=== PATIENT | male | born 1935 | race Hispanic/Latino ===

== ENCOUNTER 2019-08-14 17:06 | Inpatient (IN) | payer OTHER ==
[2019-08-14 18:08] LABS: Basophils % 0.5 % (0-1.3); Hematocrit 37.8 % (39.6-49.0); Lymphocytes % 7.9 % (15.3-44.8); MPV 10.3 fL (7.6-11.3); RBC Red Blood Cell Count 3.71 M/uL (4.33-5.43)
[2019-08-14 18:12] LABS: Protime INR 1.28
[2019-08-14 18:30] LABS: ALT/SGPT 12 U/L (12-78); AST/SGOT 6 U/L (15-37); Albumin 3.8 g/dL (3.4-5.0); Alkaline Phosphatase 62 U/L (45-117); BUN Blood Urea Nitrogen 18 mg/dL (7-18); Bicarbonate 28 mmol/L (21-32); Bilirubin Direct 0.9 mg/dL (0-0.2); Bilirubin Total 2.8 mg/dL (0.2-1.0); Glucose Level 101 mg/dL (74-106); NT PRO-BNP 2006 pg/mL (<450); Potassium 4.5 mmol/L (3.5-5.1); Protein, Total 7.5 g/dL (6.4-8.2); Sodium Level 135 mmol/L (136-145); Troponin (Emerg Dept Use Only) < 0.02 ng/mL (0.0-0.045)
--- NOTE | 2019-08-14 19:04 | RAD REPORT ---
EXAM DESCRIPTION: Jo Single View08/14/2019 5:34 pm CLINICAL HISTORY: Chest pain COMPARISON: May 2019 FINDINGS: Mild left lung opacities are superimposed over chronic changes. The right lung appears clear of acute infiltrate The heart is mildly enlarged IMPRESSION: Mild left pneumonia. This should be followed until it is clear to exclude a post obstruc tive process/underlying mass
[2019-08-14 19:32] LABS: Blood Morphology Comment NOTED (NOT SEEN); Platelet Estimate ADEQ; Polychromasia 1+; Urine White Blood Cell Casts OK
[2019-08-14] MEDS ORDERED: NA CHLORIDE 0.9% 250 ML ONE (20:12)
[2019-08-14] MEDS ORDERED: AZITHROMYCIN 500 MG INJ IVPB ONE (20:12)
[2019-08-14] MEDS ORDERED: CEFTRIAXONE/SWI 1gm 1 GM/10 ML SYR ONE (20:13)
--- NOTE | 2019-08-14 20:18 | ER ---
Nurse's Notes [facility] Name: Elijah Thibodeaux Age: 84 yrs Sex: Male : 1935 Arrival Date: 08/14/2019 Time: 17:08 Bed 6 Private MD: Norman Moon Diagnosis: Pneumonia due to other specified bacteria;Hypoxemia Presentation: 08/14 17:14 Presenting complaint: Patient states: i have this cough and its shruti yellow grabiel and it tw2 has been 2 or 3 days, i feel weak and i am coughing and i feel like i cant breathe. Transition of care: patient was not received from another setting of care. Onset of symptoms was August 14, 2019. Risk Assessment: Do you want to hurt yourself or someone else? Patient reports no desire to harm self or others. Initial Sepsis Screen: Does the patient meet any 2 criteria? No. Patient's initial sepsis screen is negative. Does the patient have a suspected source of infection? No. Patient's initial sepsis screen is negative. Care prior to arrival: None. 17:14 Method Of Arrival: Wheelchair tw2 17:14 Acuity: FABIÁN 3 tw2 Triage Assessment: 17:15 General: Appears in no apparent distress. Behavior is calm, cooperative, appropriate tw2 for age. Pain: Denies pain. Respiratory: Reports shortness of breath at rest on exertion cough that is Onset: The symptoms/episode began/occurred 2-3 days, the patient has mild shortness of breath. Historical: - Allergies: 17:18 No Known Allergies; tw2 - Home Meds: 17:18 donepezil 5 mg oral TbDL 1 tab once daily [Active]; carvedilol 6.25 mg oral tab 1 tab 2 tw2 times per day [Active]; Iron CR Oral [Active]; omeprazole 40 mg Oral cpDR 1 cap once daily [Active]; Men's One Daily 400-300 mcg oral tab [Active]; aspirin 81 mg Oral TbEC 1 tab once daily [Active]; pseudophedrine hydrocholride otc [Active]; - PMHx: 17:18 Hypertension; Atrial Fib; COPD; Lung Fibrosis; tw2 - PSHx: 17:18 cardiac stents; tw2 - Immunization history:: Adult Immunizations up to date. - Social history:: Smoking status: Patient/guardian denies using tobacco. - Ebola Screening: : No symptoms or risks identified at this time. Screenin:29 Abuse screen: Denies threats or abuse. Denies injuries from another. Nutritional hb screening: No deficits noted. Tuberculosis screening: No symptoms or risk factors identified. Fall Risk None identified. Assessment: 17:30 General: Appears in no apparent distress. Behavior is calm, cooperative. Pain: Denies hb pain. Neuro: Level of Consciousness is awake, alert, obeys commands, Oriented to person, place, time, situation. Cardiovascular: Heart tones S1 S2 present Capillary refill < 3 seconds Patient's skin is warm and dry. Rhythm is regular. Respiratory: Airway is patent Trachea midline Respiratory effort is mildly labored Respiratory pattern is regular, Breath sounds are coarse bilaterally. GI: No signs and/or symptoms were reported involving the gastrointestinal system. : No signs and/or symptoms were reported regarding the genitourinary system. EENT: No signs and/or symptoms were reported regarding the EENT system. Derm: Skin is pink, warm \T\ dry. Musculoskeletal: No signs and/or symptoms reported regarding the musculoskeletal system. 18:30 Reassessment: Patient appears in no apparent distress at this time. Patient and/or hb family updated on plan of care and expected duration. Pain level reassessed. Patient is alert, oriented x 3, equal unlabored respirations, skin warm/dry/pink. 19:55 General: Appears in no apparent distress. Behavior is calm, cooperative, appropriate ea for age. Pain: Denies pain. Neuro: Level of Consciousness is awake, alert, obeys commands, Oriented to person, place, time. Cardiovascular: Patient's skin is warm and dry. Respiratory: Airway is patent Respiratory effort is even, unlabored, Respiratory pattern is regular, Breath sounds are diminished bilaterally. Derm: Skin is dry, Skin is pale, Skin temperature is warm. Musculoskeletal: No signs and/or symptoms reported regarding the musculoskeletal system. 20:47 Reassessment: Patient and/or family updated on plan of care and expected duration. Pain ea level reassessed. Patient is alert, oriented x 3, equal unlabored respirations, skin warm/dry/pink. 22:21 Reassessment: Report given to Kristin BROUSSARD on fourth floor. ea Vital Signs: 17:18 BP 113 / 46; Pulse 85; Resp 18; Temp 98.0(TE); Pulse Ox 96% on R/A; Weight 78.02 kg tw2 (R); Height 5 ft. 9 in. (175.26 cm); Pain 0/10; 18:45 BP 123 / 75; Pulse 78; Resp 24; Pulse Ox 93% ; hb 20:07 Pulse 77; Resp 22; Temp 97.8; Pulse Ox 94% on 2 lpm NC; ea 22:23 BP 109 / 56; Pulse 76; Resp 21; Pulse Ox 95% on 2 lpm NC; ea 22:24 Temp 97.6; ea 17:18 Body Mass Index 25.40 (78.02 kg, 175.26 cm) tw2 ED Course: 17:08 Patient arrived in ED. ag5 17:09 Norman Moon MD is Private Physician. ag5 17:15 Triage completed. tw2 17:15 Arm band placed on. tw2 17:19 Marcos Martinez MD is Attending Physician. tw4 17:34 XRAY Chest (1 view) In Process Unspecified. EDMS 17:40 Patient has correct armband on for positive identification. Placed in gown. Bed in low hb position. Call light in reach. Side rails up X 1. 17:50 Inserted saline lock: 20 gauge in right antecubital area, using aseptic technique. hb Blood collected. 17:59 Maritza Lu, RN is Primary Nurse. hb 18:50 EKG done, by ED staff, reviewed by Marcos Martinez MD. sv 20:16 Christopher Malik is Hospitalizing Provider. tw4 22:22 No provider procedures requiring assistance completed. Patient admitted, IV remains in ea place. Administered Medications: 20:20 Drug: Rocephin - (cefTRIAXone) 1 grams Route: IVPB; Infused Over: 30 mins; Site: right ea antecubital; 20:27 Follow up: Response: No adverse reaction; IV Status: Completed infusion; IV Intake: 10mlea 20:27 Drug: AZITHromycin 500 mg Route: IVPB; Infused Over: 1 hrs; Site: right antecubital; ea Intake: 20:27 IV: 10ml; Total: 10ml. ea Outcome: 20:17 Decision to Hospitalize by Provider. tw4 22:22 Admitted to Med/surg accompanied by tech, via stretcher, room 425, with chart, Report ea called to Receiving nurse on fourth floor 22:22 Condition: stable 22:22 Instructed on the need for admit, Demonstrated understanding of instructions. 23:18 Patient left the ED. ea Signatures: Dispatcher [employer] EDShelly Gutierrez, RN Maritza Perdomo, RN RN Lourdes Silva RN RN tw2 Mayte De Jesus RN Marcos Lo ea, MD MD tw4 Namita Foy ag5 Corrections: (The following items were deleted from the chart) 20:27 20:26 Rocephin - (cefTRIAXone) 1 grams IVPB in right antecubital over 30 mins ea ea
--- NOTE | 2019-08-14 20:19 | EDPHYS ---
Physician Documentation [facility] Name: Elijah Thibodeaux Age: 84 yrs Sex: Male : 1935 Arrival Date: 08/14/2019 Time: 17:08 Bed 6 Private MD: Norman Moon ED Physician Marcos Martinez HPI: 08/14 17:54 This 84 yrs old Male presents to ER via Wheelchair with complaints of tw4 Breathing Difficulty, Cough, Chest Tightness. 17:54 The patient has shortness of breath at rest. Onset: The symptoms/episode began/occurred tw4 today. Duration: The symptoms are continuous, and are unchanged since they started. The patient's shortness of breath is aggravated by exertion. Associated signs and symptoms: Pertinent positives:. Severity of symptoms: At their worst the symptoms were moderate in the emergency department the symptoms are unchanged. The patient has not experienced similar symptoms in the past. Historical: - Allergies: 17:18 No Known Allergies; tw2 - Home Meds: 17:18 donepezil 5 mg oral TbDL 1 tab once daily [Active]; carvedilol 6.25 mg oral tab 1 tab 2 tw2 times per day [Active]; Iron CR Oral [Active]; omeprazole 40 mg Oral cpDR 1 cap once daily [Active]; Men's One Daily 400-300 mcg oral tab [Active]; aspirin 81 mg Oral TbEC 1 tab once daily [Active]; pseudophedrine hydrocholride otc [Active]; - PMHx: 17:18 Hypertension; Atrial Fib; COPD; Lung Fibrosis; tw2 - PSHx: 17:18 cardiac stents; tw2 - Immunization history:: Adult Immunizations up to date. - Social history:: Smoking status: Patient/guardian denies using tobacco. - Ebola Screening: : No symptoms or risks identified at this time. ROS: 17:54 Constitutional: Negative for fever, chills, and weight loss, Eyes: Negative for injury, tw4 pain, redness, and discharge, Cardiovascular: Negative for chest pain, palpitations, and edema, Abdomen/GI: Negative for abdominal pain, nausea, vomiting, diarrhea, and constipation. 17:54 Respiratory: Positive for shortness of breath, Negative for cough, dyspnea on exertion, hemoptysis, orthopnea, pleurisy, wheezing, acute changes. Exam: 17:49 Constitutional: This is a well developed, well nourished patient who is awake, alert, tw4 and in no acute distress. Head/Face: Normocephalic, atraumatic. Eyes: Pupils equal round and reactive to light, extra-ocular motions intact. Lids and lashes normal. Conjunctiva and sclera are non-icteric and not injected. Cornea within normal limits. Periorbital areas with no swelling, redness, or edema. ENT: Nares patent. No nasal discharge, no septal abnormalities noted. Tympanic membranes are normal and external auditory canals are clear. Oropharynx with no redness, swelling, or masses, exudates, or evidence of obstruction, uvula midline. Mucous membranes moist. Chest/axilla: Normal chest wall appearance and motion. Nontender with no deformity. No lesions are appreciated. Abdomen/GI: Soft, non-tender, with normal bowel sounds. No distension or tympany. No guarding or rebound. No evidence of tenderness throughout. Back: No spinal tenderness. No costovertebral tenderness. Full range of motion. Skin: Warm, dry with normal turgor. Normal color with no rashes, no lesions, and no evidence of cellulitis. MS/ Extremity: Pulses equal, no cyanosis. Neurovascular intact. Full, normal range of motion. Neuro: Awake and alert, GCS 15, oriented to person, place, time, and situation. Cranial nerves II-XII grossly intact. Motor strength 5/5 in all extremities. Sensory grossly intact. Cerebellar exam normal. Normal gait. 17:49 Cardiovascular: Rhythm: irregularly irregular, Pulses: no pulse deficits are appreciated, Heart sounds: murmur, systolic, grade 3 over 6. Vital Signs: 17:18 BP 113 / 46; Pulse 85; Resp 18; Temp 98.0(TE); Pulse Ox 96% on R/A; Weight 78.02 kg tw2 (R); Height 5 ft. 9 in. (175.26 cm); Pain 0/10; 18:45 BP 123 / 75; Pulse 78; Resp 24; Pulse Ox 93% ; hb 20:07 Pulse 77; Resp 22; Temp 97.8; Pulse Ox 94% on 2 lpm NC; ea 22:23 BP 109 / 56; Pulse 76; Resp 21; Pulse Ox 95% on 2 lpm NC; ea 22:24 Temp 97.6; ea 17:18 Body Mass Index 25.40 (78.02 kg, 175.26 cm) tw2 MDM: 17:20 Patient medically screened. tw4 20:11 Differential diagnosis: asthma, Bronchitis CHF exacerbation, pneumonia, pulmonary tw4 edema, Pulmonary Embolism reactive airway disease. Antibiotic administration: Rocephin and Zithromax given. Data reviewed: vital signs, nurses notes. Counseling: I had a detailed discussion with the patient and/or guardian regarding: the historical points, exam findings, and any diagnostic results supporting the discharge/admit diagnosis. Physician consultation: Christopher Malik was contacted at 20:10, regarding admission, to the telemetry unit. patient's condition, and will see patient in ED. 08/14 17:20 Order name: Basic Metabolic Panel; Complete Time: 19:50 08/14 19:52 Interpretation: Normal except: NA 135; GFR 64. 08/14 17:20 Order name: CBC with Diff; Complete Time: 19:50 08/14 19:53 Interpretation: Normal except: WBC 12.9; RBC 3.71; HGB 12.5; HCT 37.8; MCV 101.7; LYM% tw4 7.9; PAULINE% 86.2; RDW 15.5; NEUT A 11.2. 08/14 17:20 Order name: LFT's; Complete Time: 19:50 08/14 19:53 Interpretation: Normal except: AST 6; BILIT 2.8; BILID 0.9; A/G 1.0; GLOB 3.7. 08/14 17:20 Order name: Magnesium; Complete Time: 19:50 08/14 19:53 Interpretation: Within normal limits: MG 2.0. 08/14 17:20 Order name: NT PRO-BNP; Complete Time: 19:50 08/14 19:53 Interpretation: Normal except: NT PRO-BNP 2005. 08/14 17:20 Order name: PT-INR; Complete Time: 19:50 08/14 19:53 Interpretation: Normal except: PT 15.0. 08/14 17:20 Order name: Troponin (emerg Dept Use Only); Complete Time: 19:50 08/14 19:53 Interpretation: Within normal limits: TROPED < 0.02. tw4 08/14 17:20 Order name: XRAY Chest (1 view); Complete Time: 19:50 tw4 08/14 19:53 Interpretation: Abnormal. tw4 08/14 17:20 Order name: EKG; Complete Time: 17:21 tw4 08/14 17:20 Order name: Cardiac monitoring; Complete Time: 18:34 tw4 08/14 17:20 Order name: EKG - Nurse/Tech; Complete Time: 18:50 tw4 08/14 18:22 Order name: CBC Smear Scan; Complete Time: 19:50 EDNM 08/14 17:20 Order name: IV Saline Lock; Complete Time: 18:34 tw4 08/14 17:20 Order name: Labs collected and sent; Complete Time: 18:34 tw4 08/14 17:20 Order name: O2 Per Protocol; Complete Time: 18:34 tw4 08/14 17:20 Order name: O2 Sat Monitoring; Complete Time: 18:34 tw4 EC:52 Rate is 79 beats/min. Rhythm is regular with Left bundle branch block. QRS [place] is tw4 Normal. QRS interval is normal. QT interval is normal. No Q waves. T waves are Inverted in leads aVL, V4, V5, V6. No ST changes noted. Clinical impression: Abnormal EKG without significant change. Interpreted by me. Reviewed by me. Administered Medications: 20:20 Drug: Rocephin - (cefTRIAXone) 1 grams Route: IVPB; Infused Over: 30 mins; Site: right ea antecubital; 20:27 Follow up: Response: No adverse reaction; IV Status: Completed infusion; IV Intake: 10mlea 20:27 Drug: AZITHromycin 500 mg Route: IVPB; Infused Over: 1 hrs; Site: right antecubital; ea Disposition: 08/14/19 20:17 Hospitalization ordered by Christopher Malik for Inpatient Admission. Preliminary diagnosis are Pneumonia due to other specified bacteria, Hypoxemia. - Bed requested for Telemetry/MedSurg (Inpatient). - Status is Inpatient Admission. ea - Condition is Stable. - Problem is new. - Symptoms are unchanged. UTI on Admission? No Signatures: Dispatcher [employer] Kristen Biggs RN RN Maritza Lu RN RN Lourdes Burns, RN RN tw2 Mayte De Jesus RN RN ea Marcos Martinez MD MD tw4 Corrections: (The following items were deleted from the chart) 22:09 20:17 Hospitalization Ordered by Christopher Malik for Inpatient Admission. Preliminary mw diagnosis is Pneumonia due to other specified bacteria; Hypoxemia. Bed requested for Telemetry/MedSurg (Inpatient). Status is Inpatient Admission. Condition is Stable. Problem is new. Symptoms are unchanged. UTI on Admission? No. tw4 23:18 22:09 08/14/2019 20:17 Hospitalization Ordered by Christopher Malik for Inpatient ea Admission. Preliminary diagnosis is Pneumonia due to other specified bacteria; Hypoxemia. Bed requested for Telemetry/MedSurg (Inpatient). Status is Inpatient Admission. Condition is Stable. Problem is new. Symptoms are unchanged. UTI on Admission? No. mw
--- NOTE | 2019-08-14 22:02 | P.HP ---
Certification for Inpatient Patient admitted to: Observation With expected LOS: <2 Midnights Practitioner: I am a practitioner with admitting privileges, knowledge of patient current condition, hospital course, and medical plan of care. Services: Services provided to patient in accordance with Admission requirements found in Title 42 Section 412.3 of the Code of Federal Regulations Patient History Date of Service: 08/14/19 Reason for admission: Cough and shortness of breath History of Present Illness: 84-year-old gentleman with a history of COPD and asthma, atrial fibrillation, coronary artery disease presented to the emergency department with a complaint of a 2 day history shortness of breath and cough. Patient reports cough productive for yellow sputum. He denies chest pain or palpitation. He reports fatigue, denied orthopnea or paroxysmal nocturnal dyspnea. He denied wheezing. He also reports black stool which he states is chronic. Chest x-ray in the ED report mild left lower lobe pneumonia. He has mild leukocytosis. He does not meet criteria for sepsis. He is not requiring oxygen. He appears weak. Patient is hospitalized for further management of pneumonia and COPD exacerbation. Allergies No Known Allergies Allergy (Uncoded 08/14/19 23:17) Unknown No Known Drug Allergies Allergy (Uncoded 11/20/14 01:30) Unknown Home Medications: Donepezil HCl 1 tab PO BEDTIME 08/14/19 Ferrous Sulfate 1 tab PO SEECOM 08/14/19 Omeprazole [Prilosec] 1 cap PO DAILY 08/14/19 Pseudoephedrine HCl [12 Hour Cold] 1 tab PO DAILY 08/14/19 carvediloL [Coreg*] 1 tab PO BID 08/14/19 - Past Medical/Surgical History Diabetic: No -: hyperlipidemia -: asthma -: htn -: cardiac stent x1 -: COPD - Family History Mother -: Diabetes Father -: Heart disease Brother -: Heart disease Notes: of heart attack - Social History Alcohol use: No CD- Drugs: No Caffeine use: Yes Review of Systems Other: General: No fever, no malaise, no unintentional weight loss. Eyes: No eye discharge, CVS: No chest pain, no palpitation, no lightheadedness. GI: No abdominal pain, no nausea no vomit, no constipation, no diarrhea. Genitourinary: No dysuria, no urinary frequency, no incontinence, no hematuria. Musculoskeletal: No joint pains, or joint swelling, no gait instability. Neurology: No headache, no asymmetric weakness, no problem with swallowing. Except as documented, all other systems reviewed and negative. Physical Examination - Physical Exam General: Alert, In no apparent distress, Oriented x3 HEENT: Atraumatic, PERRLA, Mucous membr. moist/pink Neck: Supple, JVD not distended Respiratory: Clear to auscultation bilaterally, Normal air movement Cardiovascular: No edema, Regular rate/rhythm, Normal S1 S2 Capillary refill: <2 Seconds Gastrointestinal: Normal bowel sounds, Soft and benign, Non-distended, No tenderness Musculoskeletal: No swelling, No erythema Integumentary: No rashes, No erythema Neurological: Normal speech, Normal strength at 5/5 x4 extr - Studies Laboratory Data (last 24 hrs) 08/14/19 17:55: PT 15.0 H, INR 1.28 08/14/19 17:55: WBC 12.9 H D, Hgb 12.5 L, Hct 37.8 L, Plt Count 212 08/14/19 17:55: Sodium 135 L, Potassium 4.5, BUN 18, Creatinine 1.09, Glucose 101, Magnesium 2.0, Total Bilirubin 2.8 H, AST 6 L, ALT 12, Alkaline Phosphatase 62 Assessment and Plan - Problems (Diagnosis) (1) Pneumonia Current Visit: Yes Status: Acute (2) COPD exacerbation Current Visit: Yes Status: Acute (3) HTN (hypertension) Onset Date: 05/07/17 Current Visit: No Status: Acute Qualifiers: Hypertension type: essential hypertension Qualified Code(s): I10 - Essential (primary) hypertension (4) CAD (coronary artery disease) Current Visit: Yes Status: Acute (5) Hyperbilirubinemia Current Visit: Yes Status: Acute (6) History of lower GI bleeding Current Visit: Yes Status: Acute (7) History of GI bleed Current Visit: Yes Status: Acute - Plan Place under observation Treat pneumonia with IV Rocephin and Zithromax Schedule Duoneb P.o. prednisone Oxygen therapy as needed Monitor CBC to follow hemoglobin and leukocytosis. Monitor for melena or bright red blood per rectum given his history of lower GI bleed secondary to angiodysplasia. Patient is supposed to follow with GI for repeat endoscopy as outpatient. Check liver ultrasound - Advance Directives Does patient have a Living Will: No Does patient have a Durable POA for Healthcare: No
[2019-08-14] MEDS ORDERED: ONDANSETRON 4 MG/2 ML VIAL IV PRN (23:17)
[2019-08-14] MEDS ORDERED: ACETAMINOPHEN 500 MG TAB PO PRN (23:17)
[2019-08-15 00:32] VITALS: BMI 24.3
[2019-08-15 01:15] LABS: Urine Appearance CLEAR; Urine Blood 1+ (NEG); Urine Color DK YELLOW; Urine Glucose NEGATIVE (NEG); Urine Protein NEGATIVE (NEG); Urine Specific Gravity 1.015 (1.005-1.030); Urine pH 5.5 (5.0-7.0)
[2019-08-15] MEDS: IPRATROPIUM BROM 0.5MG/2.5ML NEB SCH ×6 (01:35→20:35)
[2019-08-15 01:39] LABS: Urine Bilirubin NEGATIVE (NEG)
[2019-08-15 01:45] LABS: Urine Bacteria 20-50 /HPF (NONE SEEN); Urine Culture Reflex Order REFLEXED
[2019-08-15] MEDS: ALBUTEROL 2.5 MG/3 ML NEB SOL NEB SCH ×4 (02:00→20:35)
[2019-08-15 04:37] LABS: Basophils % 0.9 % (0-1.3); Hematocrit 33.5 % (39.6-49.0); Lymphocytes % 23.8 % (15.3-44.8); MPV 10.4 fL (7.6-11.3); RBC Red Blood Cell Count 3.33 M/uL (4.33-5.43)
[2019-08-15 04:58] LABS: Magnesium 2.2 mg/dL (1.8-2.4); Phosphorus 3.2 mg/dL (2.5-4.9); Potassium 3.6 mmol/L (3.5-5.1)
[2019-08-15] MEDS ORDERED: POTASSIUM CL SA 10 MEQ TAB PO ONE (08:00)
[2019-08-15] MEDS ORDERED: CEFTRIAXONE 1 GM/NS 50 ML 1 GM/50 ML BAG IV SCH (09:00)
[2019-08-15] MEDS ORDERED: ENOXAPARIN 40 MG/0.4 ML SQ SCH (09:00)
--- NOTE | 2019-08-15 09:00 | EKG ---
Test Date: 2019-08-14 Test Time: 18:38:41 Talent Development Analyst: JESUS MEASUREMENT RESULTS: Intervals: Rate: 79 VT: QRSD: 146 QT: 426 QTc: 488 [place]: P: VT: QRS: -38 T: 154 INTERPRETIVE STATEMENTS: Undetermined rhythm Left axis deviation Left bundle branch block Abnormal ECG Compared to ECG 05/08/2017 08:37:07 Atrial fibrillation no longer present Electronically Signed On 08-15-19 08:57:57 ACCOUNT SERVICE ASSOCIATE by Yann Marcial
[2019-08-15] MEDS: AZITHROMYCIN IV 500 MG in NA CHLORIDE 0.9% 250 ML IVPB SCH (09:57)
[2019-08-15] MEDS: CEFTRIAXONE/SWI 1gm 1 GM/10 ML SYR IV SCH ×2 (09:57→21:46)
--- NOTE | 2019-08-15 10:16 | RAD REPORT ---
EXAM DESCRIPTION: US - Liver Only - 08/15/2019 9:33 am CLINICAL HISTORY: Hyperbilirubinemia COMPARISON: None FINDINGS: The liver has a mildly heterogeneous echotexture. Hepatopetal flow. A lesion is not visual ized. The biliary tree is normal caliber The spleen measures 11 IMPRESSION: Mildly heterogeneous hepatic echotexture may indicate parenchymal disease. Unremarkable ultrasound spleen
--- NOTE | 2019-08-15 11:59 | P.PN ---
Subjective Date of Service: 08/15/19 Chief Complaint: Cough and shortness of breath Patient is having productive cough and chest congestion. He is unable to expectorate sputum. Mucomyst and albuterol ordered. He is still lethargic, currently working with physical therapy Physical Examination - Vital Signs Temperature: 97.5 F Blood Pressure: 140/70 Pulse: 72 Respirations: 18 Pulse Ox (%): 100 - Physical Exam General: Other (The patient is awake, responding appropriately. Speaking in full sentences. Lethargic) HEENT: Atraumatic, Normocephalic, EOMI Neck: Supple Respiratory: Other (Good air entry bilaterally. No wheezing or crackles heard.) Cardiovascular: No edema, Regular rate/rhythm, Normal S1 S2 Gastrointestinal: Normal bowel sounds, Soft and benign, Non-distended Musculoskeletal: Other (Physically deconditioned) Integumentary: Warmth Neurological: Normal speech, Normal affect - Studies Laboratory Data (last 24 hrs) 08/14/19 17:55: PT 15.0 H, INR 1.28 08/14/19 17:55: WBC 12.9 H D, Hgb 12.5 L, Hct 37.8 L, Plt Count 212 08/14/19 17:55: Sodium 135 L, Potassium 4.5, BUN 18, Creatinine 1.09, Glucose 101, Magnesium 2.0, Total Bilirubin 2.8 H, AST 6 L, ALT 12, Alkaline Phosphatase 62 Assessment & Plan - Problems (Diagnosis) (1) CAD (coronary artery disease) Current Visit: Yes Status: Acute (2) COPD exacerbation Current Visit: Yes Status: Acute (3) History of lower GI bleeding Current Visit: Yes Status: Acute (4) Hyperbilirubinemia Current Visit: Yes Status: Acute (5) Pneumonia Current Visit: Yes Status: Acute (6) HTN (hypertension) Onset Date: 05/07/17 Current Visit: No Status: Acute Qualifiers: Hypertension type: essential hypertension Qualified Code(s): I10 - Essential (primary) hypertension (7) Hyperlipidemia Onset Date: 05/07/17 Current Visit: No Status: Acute Qualifiers: Hyperlipidemia type: pure hypercholesterolemia Qualified Code(s): E78.00 - Pure hypercholesterolemia, unspecified; E78.0 - Pure hypercholesterolemia Physician Review Additional Text: Impression Patient is a 84-year-old male with a known past medical history of COPD , lower GI bleeding secondary to angiodysplasia who was admitted overnight with symptoms of productive cough and fatigue. He was found to have UTI and mild left lower lobe pneumonia. Patient was empirically started on ceftriaxone and azithromycin. The patient is responding to therapy, currently on room air. He is currently working with physical therapy for his deconditioning. PLAN: 1. Continue ceftriaxone and azithromycin and treat for a total 7 days. Mucomyst and albuterol pulmonary toilet 2. Physical therapy and occupational therapy 3. Repeat H&H tomorrow given history of lower GI bleeding and Anngiodysplasia, and transfuse if hemoglobin is less than 8. 4. Continue ceftriaxone for dual management of pneumonia and UTI. 6. Follow-up urine and sputum cultures
[2019-08-15] MEDS ORDERED: ALBUTEROL 2.5 MG/3 ML NEB SOL NEB SCH (14:00)
[2019-08-15] MEDS: ACETYLCYST 20% 4 ML VIAL IH SCH ×2 (14:20→20:35)
--- NOTE | 2019-08-15 16:41 | EKG ---
Test Date: 2019-08-15 Test Time: 09:35:43 [place]hery Boss: TRICIA MEASUREMENT RESULTS: Intervals: Rate: 75 [place]: QRSD: 154 QT: 452 QTc: 504 [place]: P: CA: QRS: -54 T: 133 INTERPRETIVE STATEMENTS: Undetermined rhythm Left axis deviation Left bundle branch block Abnormal ECG Compared to ECG 08/14/2019 18:38:41 No significant changes Electronically Signed On 08-15-19 16:39:58 HOOP DRIVING MACHINE OPERATOR by Yann Marcial
[2019-08-16] MEDS: ACETYLCYST 20% 4 ML VIAL IH SCH ×4 (02:20→19:58)
[2019-08-16] MEDS: IPRATROPIUM BROM 0.5MG/2.5ML NEB SCH ×6 (02:20→19:58)
[2019-08-16] MEDS: ALBUTEROL 2.5 MG/3 ML NEB SOL NEB SCH ×4 (02:20→19:58)
[2019-08-16] MEDS: AZITHROMYCIN IV 500 MG in NA CHLORIDE 0.9% 250 ML IVPB SCH (08:22)
[2019-08-16] MEDS: CEFTRIAXONE/SWI 1gm 1 GM/10 ML SYR IV SCH ×2 (08:23→21:01)
[2019-08-16] MEDS ORDERED: FERROUS SULFATE 325 MG TAB PO SCH (09:00)
--- NOTE | 2019-08-16 10:29 | P.PN ---
Subjective Date of Service: 08/16/19 Chief Complaint: Cough and shortness of breath Patient denies any productive cough or fever Overnite. He is currently on room air without dyspnea. He is still lethargic. Currently working with physical therapy. Physical Examination - Vital Signs Temperature: 98 F Blood Pressure: 133/61 Pulse: 80 Respirations: 20 Pulse Ox (%): 96 - Physical Exam General: Alert, In no apparent distress, Cooperative, Other (Lethargic) HEENT: Atraumatic, Normocephalic, EOMI Neck: Supple Respiratory: Clear to auscultation bilaterally, Normal air movement, Other (No wheezing or crackles. Nonlabored breathing) Cardiovascular: No edema, Normal pulses, Regular rate/rhythm, Normal S1 S2 Gastrointestinal: Normal bowel sounds, Soft and benign, Non-distended Musculoskeletal: No swelling Neurological: Normal speech, Normal affect, Other (No focal weakness) - Studies Laboratory Data (last 24 hrs) 08/16/19 05:36: Sodium 140, Potassium 4.0, BUN 12, Creatinine 0.85, Glucose 93 Assessment & Plan - Problems (Diagnosis) (1) CAD (coronary artery disease) Current Visit: Yes Status: Acute (2) COPD exacerbation Current Visit: Yes Status: Acute (3) History of lower GI bleeding Current Visit: Yes Status: Acute (4) Hyperbilirubinemia Current Visit: Yes Status: Acute (5) Pneumonia Current Visit: Yes Status: Acute (6) HTN (hypertension) Onset Date: 05/07/17 Current Visit: No Status: Acute Qualifiers: Hypertension type: essential hypertension Qualified Code(s): I10 - Essential (primary) hypertension (7) Hyperlipidemia Onset Date: 05/07/17 Current Visit: No Status: Acute Qualifiers: Hyperlipidemia type: pure hypercholesterolemia Qualified Code(s): E78.00 - Pure hypercholesterolemia, unspecified; E78.0 - Pure hypercholesterolemia Physician Review Additional Text: Impression Patient is a 84-year-old male with a known past medical history of COPD , lower GI bleeding secondary to angiodysplasia who was admitted overnight with symptoms of productive cough and fatigue. He was found to have UTI and mild left lower lobe pneumonia. Patient was empirically started on ceftriaxone and azithromycin. The patient is responding to therapy, currently on room air. He is currently working with physical therapy for his deconditioning. PLAN: 1. Date 3 of ceftriaxone and azithromycin. Plan to treat for a total 7 days. Mucomyst and albuterol pulmonary toilet 2. Physical therapy and occupational therapy 3. Repeat H&H checked given history of lower GI bleeding and Anngiodysplasia. Last hemoglobin 11.2. Will stop trending since patient is asymptomatic 4. Follow-up urine and sputum cultures Time Spent Managing Pts Care (In Minutes): 25
[2019-08-16] MEDS: carvediloL 6.25 MG TAB PO SCH ×2 (10:51→21:01)
[2019-08-16] MEDS ORDERED: DONEPEZIL HCL 5 MG TAB PO SCH (21:00)
[2019-08-17] MEDS: ALBUTEROL 2.5 MG/3 ML NEB SOL NEB SCH ×3 (01:58→13:35)
[2019-08-17] MEDS: IPRATROPIUM BROM 0.5MG/2.5ML NEB SCH ×5 (01:58→16:00)
[2019-08-17] MEDS: ACETYLCYST 20% 4 ML VIAL IH SCH ×3 (01:58→13:35)
[2019-08-17] MEDS: CEFTRIAXONE/SWI 1gm 1 GM/10 ML SYR IV SCH (08:47)
[2019-08-17] MEDS: carvediloL 6.25 MG TAB PO SCH (08:48)
[2019-08-17 08:58] VITALS: TEMP 97.1
[2019-08-17] MEDS ORDERED: PANTOPRAZOLE 40MG TABLET PO SCH (09:00)
[2019-08-17] MEDS: AZITHROMYCIN IV 500 MG in NA CHLORIDE 0.9% 250 ML IVPB SCH (10:49)
--- NOTE | 2019-08-17 10:57 | P.DS ---
Admission Date: 08/16/19 Discharge Date: 08/17/19 Disposition: ROUTINE DISCHARGE Discharge Condition: GOOD Reason for Admission: Cough and shortness of breath - Problems (1) CAD (coronary artery disease) Current Visit: Yes Status: Acute (2) COPD exacerbation Current Visit: Yes Status: Acute (3) History of lower GI bleeding Current Visit: Yes Status: Acute (4) Hyperbilirubinemia Current Visit: Yes Status: Acute (5) Pneumonia Current Visit: Yes Status: Acute (6) HTN (hypertension) Onset Date: 05/07/17 Current Visit: No Status: Acute Qualifiers: Hypertension type: essential hypertension Qualified Code(s): I10 - Essential (primary) hypertension (7) Hyperlipidemia Onset Date: 05/07/17 Current Visit: No Status: Acute Qualifiers: Hyperlipidemia type: pure hypercholesterolemia Qualified Code(s): E78.00 - Pure hypercholesterolemia, unspecified; E78.0 - Pure hypercholesterolemia Brief History of Present Illness: Patient is a 84 year old male with a history of COPD and asthma, atrial fibrillation, coronary artery disease who presented to the ER with shortness of breath and productive cough. Chest x-ray in the ED report mild left lower lobe pneumonia. He was not septic, and without need for supplemental Oxygen. Hospital Course: Patient was admitted with a working diagnosis of community acquired pneumonia and UTI as per UA. He responded well to ceftriaxone and azithromycin along with nebulizer therapy. He tolerated his physical therapy well. His hospital course was unremarkable. Sputum and urine cultures did not yield any organisms. He will be discharged on a 5-day course of Augmentin. Vital Signs/Physical Exam: Temp Pulse Resp BP Pulse Ox 97.1 F 86 18 98/50 L 92 08/17/19 08:00 08/17/19 08:48 08/17/19 08:00 08/17/19 08:48 08/17/19 08:00 General: In no apparent distress, Cooperative, Other (more energetic but still deconditioned overall) HEENT: Atraumatic, Normocephalic, EOMI Neck: Supple Respiratory: Clear to auscultation bilaterally, Normal air movement Cardiovascular: No edema, Normal pulses, Regular rate/rhythm, Normal S1 S2 Gastrointestinal: Normal bowel sounds, Soft and benign, Non-distended Musculoskeletal: No swelling, No contractures, No erythema Integumentary: Warmth Neurological: Normal speech, Normal affect Laboratory Data at Discharge: WBC 8.5 K/uL (4.3-10.9) D 08/15/19 04:15 Hgb 11.3 g/dL (13.6-17.9) L 08/15/19 04:15 Hct 33.5 % (39.6-49.0) L 08/15/19 04:15 Plt Count 174 K/uL (152-406) 08/15/19 04:15 PT 15.0 SECONDS (9.5-12.5) H 08/14/19 17:55 INR 1.28 08/14/19 17:55 Sodium 140 mmol/L (136-145) 08/16/19 05:36 Potassium 4.0 mmol/L (3.5-5.1) 08/16/19 05:36 BUN 12 mg/dL (7-18) 08/16/19 05:36 Creatinine 0.85 mg/dL (0.55-1.3) 08/16/19 05:36 Glucose 93 mg/dL (74-106) 08/16/19 05:36 Phosphorus 3.2 mg/dL (2.5-4.9) 08/15/19 04:15 Magnesium 2.2 mg/dL (1.8-2.4) 08/15/19 04:15 Total Bilirubin 2.8 mg/dL (0.2-1.0) H 08/14/19 17:55 AST 6 U/L (15-37) L 08/14/19 17:55 ALT 12 U/L (12-78) 08/14/19 17:55 Alkaline Phosphatase 62 U/L (45-117) 08/14/19 17:55 Triglycerides 82 mg/dL (<150) 08/15/19 04:15 Cholesterol 116 mg/dL (<200) 08/15/19 04:15 HDL Cholesterol 40 mg/dL (40-60) 08/15/19 04:15 Cholesterol/HDL Ratio 2.90 08/15/19 04:15 Home Medications: Donepezil HCl 1 tab PO BEDTIME 08/14/19 Ferrous Sulfate 1 tab PO SEECOM 08/14/19 Omeprazole [Prilosec] 1 cap PO DAILY 08/14/19 Pseudoephedrine HCl [12 Hour Cold] 1 tab PO DAILY 08/14/19 carvediloL [Coreg*] 1 tab PO BID 08/14/19 Amox/Clavulanate [Augmentin 875-125 Tab] 1 each PO BID #10 tab 08/17/19 New Medications: Amox/Clavulanate [Augmentin 875-125 Tab] 1 each PO BID #10 tab Diet: Regular Activity: Ad paul
[2019-08-17 12:46] VITALS: BP 131/64
[2019-08-17 13:15] VITALS: O2SAT 98
== END 2019-08-17 15:48 | disposition home health service (06) | DRG 193 ==
LOC: ER 17:06 → ERHOLD 22:06 → 4TH 22:23 → OBSVTOIN 08-16 07:26
PROVIDERS: ADMIT Internal Medicine; ATTEND Internal Medicine
DX: J18.9 Pneumonia, unspecified organism (principal); K55.21 Angiodysplasia of colon with hemorrhage; J44.1 Chronic obstructive pulmonary disease with (acute) exacerbation; I48.20 Chronic atrial fibrillation, unspecified; J44.0 Chronic obstructive pulmonary disease with (acute) lower respiratory infection; N39.0 Urinary tract infection, site not specified; I10 Essential (primary) hypertension; I25.10 Atherosclerotic heart disease of native coronary artery without angina pectoris; E80.6 Other disorders of bilirubin metabolism; E78.00 Pure hypercholesterolemia, unspecified
CPT/HCPCS: 36415; 71045; 76705; 80048; 80061; 80076; 81001; 83735; 83880; 84100; 84484; 85025; 85610; 87070; 87086; 87088; 87205; 93005; 94640; 94760; 96374; 96375; 97116; 97161; 97530; 99285; G0378; J0456; J0696; J7030

== ENCOUNTER 2019-08-30 11:43 | Observation (INO) | payer OTHER ==
[2019-08-30 12:45] LABS: Absolute Lymphocytes (CBC) 1.5 K/uL (0.7-4.9); Basophils % 1.1 % (0-1.3); Hematocrit 36.8 % (39.6-49.0); Lymphocytes % 23.9 % (15.3-44.8); MPV 10.1 fL (7.6-11.3); RBC Red Blood Cell Count 3.64 M/uL (4.33-5.43)
[2019-08-30 12:50] LABS: Protime INR 1.19
--- NOTE | 2019-08-30 13:01 | RAD REPORT ---
EXAM DESCRIPTION: Jo Single View08/30/2019 12:42 pm CLINICAL HISTORY: Shortness of breath COMPARISON: August 14, 2019 FINDINGS: Left lung opacities have partially resolved The heart is mildly enlarged IMPRESSION: Partial resolution in the mild left pneumonia. Left lower lobe atelectasis is also susp ected
[2019-08-30 13:05] LABS: ALT/SGPT 15 U/L (12-78); AST/SGOT 16 U/L (15-37); Albumin 3.5 g/dL (3.4-5.0); Alkaline Phosphatase 61 U/L (45-117); BUN Blood Urea Nitrogen 16 mg/dL (7-18); Bicarbonate 29 mmol/L (21-32); Bilirubin Direct 0.5 mg/dL (0-0.2); Bilirubin Total 2.2 mg/dL (0.2-1.0); Glucose Level 82 mg/dL (74-106); Magnesium 2.2 mg/dL (1.8-2.4); NT PRO-BNP 2053 pg/mL (<450); Potassium 3.9 mmol/L (3.5-5.1); Protein, Total 6.6 g/dL (6.4-8.2); Sodium Level 140 mmol/L (136-145); Troponin (Emerg Dept Use Only) < 0.02 ng/mL (0.0-0.045)
[2019-08-30] MEDS ORDERED: LEVALBUTEROL 1.25 MG/3 ML NEB ONE (13:11)
--- NOTE | 2019-08-30 13:56 | EKG ---
Test Date: 2019-08-30 Test Time: 12:30:00 Archival Studies Professor: TRICIA MEASUREMENT RESULTS: Intervals: Rate: 66 GA: QRSD: 152 QT: 462 QTc: 484 Mikado: P: GA: QRS: 132 T: -7 INTERPRETIVE STATEMENTS: Atrial fibrillation with premature ventricular or aberrantly conducted complexes Right axis deviation Left bundle branch block Abnormal ECG Compared to ECG 08/15/2019 09:35:43 Ventricular premature complex(es) now present Right-axis deviation now present Left-axis deviation no longer present Electronically Signed On 08-30-19 13:56:04 BEAUTY OPERATOR by Josh Sen
--- NOTE | 2019-08-30 15:17 | ER ---
Nurse's Notes [facility] Name: Elijah Thibodeaux Age: 84 yrs Sex: Male : 1935 Arrival Date: 08/30/2019 Time: 11:46 Bed 27 Private MD: Norman Moon Diagnosis: Chronic obstructive pulmonary disease with (acute) exacerbation Presentation: 08/30 12:07 Presenting complaint: Child states: he was just dc here 2 weeks ago for pneumonia but mg2 he is not getting better. denies fever. he has shortness of breath. Transition of care: patient was not received from another setting of care. Onset of symptoms was August 2019. Risk Assessment: Do you want to hurt yourself or someone else? Patient reports no desire to harm self or others. Initial Sepsis Screen: Does the patient meet any 2 criteria? No. Patient's initial sepsis screen is negative. Does the patient have a suspected source of infection? No. Patient's initial sepsis screen is negative. Care prior to arrival: None. 12:07 Method Of Arrival: Wheelchair mg2 12:07 Acuity: FABIÁN 3 mg2 Triage Assessment: 13:20 General: Appears in no apparent distress. comfortable, Behavior is calm, cooperative. mg2 Respiratory: Onset: The symptoms/episode began/occurred gradually, the patient has mild shortness of breath. Historical: - Allergies: 12:11 No Known Allergies; mg2 - Home Meds: 13:22 aspirin 81 mg Oral TbEC 1 tab once daily [Active]; carvedilol 6.25 mg Oral tab 1 tab 2 mg2 times per day [Active]; donepezil 5 mg Oral TbDL 1 tab once daily [Active]; Iron CR Oral [Active]; Men's One Daily 400-300 mcg Oral tab [Active]; omeprazole 40 mg Oral cpDR 1 cap once daily [Active]; pseudophedrine hydrocholride otc [Active]; - PMHx: 12:11 Atrial Fib; COPD; Hypertension; lung fibrosis; mg2 - PSHx: 12:11 knee replacement; Heart stents; mg2 - Immunization history:: Flu vaccine is not up to date. - Social history:: Smoking status: Patient/guardian denies using tobacco, Patient/guardian denies using alcohol, street drugs, IV drugs. - Ebola Screening: : No symptoms or risks identified at this time. Screenin:19 Abuse screen: Denies threats or abuse. Denies injuries from another. Nutritional mg2 screening: No deficits noted. Tuberculosis screening: No symptoms or risk factors identified. Fall Risk IV access (20 points). Assessment: 13:17 General: Appears in no apparent distress. comfortable, Behavior is calm, cooperative. mg2 Pain: Denies pain. Neuro: Level of Consciousness is awake, alert, obeys commands, Oriented to person, place, time, situation. Cardiovascular: Rhythm is atrial fibrillation. Respiratory: Reports shortness of breath at rest Airway is patent Respiratory effort is even, unlabored, Respiratory pattern is regular, symmetrical. GI: No signs and/or symptoms were reported involving the gastrointestinal system. GI: Reports loss of appetite. : No signs and/or symptoms were reported regarding the genitourinary system. EENT: No signs and/or symptoms were reported regarding the EENT system. Derm: Skin is intact, is healthy with good turgor, Skin is pink, warm \T\ dry. normal. Musculoskeletal: Circulation, motion, and sensation intact. Capillary refill < 3 seconds. 13:20 Respiratory: Breath sounds are diminished in left upper lobe. mg2 13:51 Reassessment: patient was able to ambulate on his own with a walker. oxygen saturation mg2 dropped from 95% to 89% while walking and he said he is short of breath during ambulation. 15:25 Reassessment: Patient appears in no apparent distress at this time. Patient and/or mg2 family updated on plan of care and expected duration. Pain level reassessed. Patient is alert, oriented x 3, equal unlabored respirations, skin warm/dry/pink. Vital Signs: 12:09 Pulse 78; Resp 18; Temp 97.6; Pulse Ox 98% on R/A; Weight 74.84 kg; Height 5 ft. 9 in. mg2 (175.26 cm); Pain 0/10; 12:40 BP 112 / 64; mg2 13:22 BP 116 / 66; Pulse 65; Resp 18; Pulse Ox 100% on R/A; mg2 13:52 BP 135 / 74; Pulse 62; Resp 18; Pulse Ox 100% on R/A; mg2 15:25 BP 114 / 55; Pulse 77; Resp 18; Pulse Ox 99% on R/A; mg2 12:09 Body Mass Index 24.37 (74.84 kg, 175.26 cm) mg2 ED Course: 11:46 Patient arrived in ED. mr 11:46 Norman Moon MD is Private Physician. mr 11:59 Jose Castellano, RN is Primary Nurse. mg2 12:02 Matt George PA is PHCP. [facility] 12:02 Armin Rodriguez MD is Attending Physician. [facility] 12:09 Triage completed. mg2 12:11 Arm band placed on. mg2 12:25 Initial lab(s) drawn, by me, sent to lab. First set of blood cultures drawn. Inserted mg2 saline lock: 20 gauge in right antecubital area, using aseptic technique. Blood collected. 12:40 No provider procedures requiring assistance completed. mg2 12:42 XRAY Chest (1 view) In Process Unspecified. EDMS 13:20 Patient has correct armband on for positive identification. monitoring and evaluation advisor on. Pulse mg2 ox on. NIBP on. Door closed. Warm blanket given. 15:15 Lee Medina DO is Hospitalizing Provider. [facility] 16:16 Patient admitted, IV remains in place. mg2 Administered Medications: 13:13 Drug: Xopenex (3) 1.25 mg Route: Inhalation; mg2 14:03 Follow up: Response: No adverse reaction; Marked relief of symptoms mg2 Outcome: 15:15 Decision to Hospitalize by Provider. [facility] 16:15 Admitted to Tele accompanied by ericka, via wheelchair, room 421, with chart, Report mg2 called to AARTI Montes 16:15 Condition: stable 16:15 Instructed on the need for admit, Demonstrated understanding of instructions. 16:36 Patient left the ED. iw Signatures: Dispatcher [employer] EDMS Matt George PA PA [facility] Radha Rockwell Irene, RN RN iw Jose Castellano, RN RN mg2
--- NOTE | 2019-08-30 15:17 | EDPHYS ---
Physician Documentation [facility] Name: Elijah Thibodeaux Age: 84 yrs Sex: Male : 1935 Arrival Date: 08/30/2019 Time: 11:46 Bed 27 Private MD: Norman Moon ED Physician Armin Rodriguez HPI: 08/30 12:37 This 84 yrs old Male presents to ER via Wheelchair with complaints of jmm Shortness Of Breath. 12:37 The patient has shortness of breath with light activity. Onset: The symptoms/episode jmm began/occurred gradually, 3 week(s) ago. Duration: The symptoms are continuous. The patient's shortness of breath is aggravated by exertion, is alleviated by nothing. Associated signs and symptoms: Pertinent positives: cough. This is an 84 year old male with a history of atrial fibrillation, COPD, HTN, lung fibrosis that presents to the ED with complaints of ongoing shortness of breath over the past 3 weeks. Was discharged from the hospital but continues to have weakness and shortness of breath. . Historical: - Allergies: 12:11 No Known Allergies; mg2 - Home Meds: 13:22 aspirin 81 mg Oral TbEC 1 tab once daily [Active]; carvedilol 6.25 mg Oral tab 1 tab 2 mg2 times per day [Active]; donepezil 5 mg Oral TbDL 1 tab once daily [Active]; Iron CR Oral [Active]; Men's One Daily 400-300 mcg Oral tab [Active]; omeprazole 40 mg Oral cpDR 1 cap once daily [Active]; pseudophedrine hydrocholride otc [Active]; - PMHx: 12:11 Atrial Fib; COPD; Hypertension; lung fibrosis; mg2 - PSHx: 12:11 knee replacement; Heart stents; mg2 - Immunization history:: Flu vaccine is not up to date. - Social history:: Smoking status: Patient/guardian denies using tobacco, Patient/guardian denies using alcohol, street drugs, IV drugs. - Ebola Screening: : No symptoms or risks identified at this time. ROS: 12:37 Constitutional: Negative for fever, chills, and weight loss, Cardiovascular: Negative jmm for chest pain, palpitations, and edema, Respiratory: Negative for shortness of breath, cough, wheezing, and pleuritic chest pain. 12:37 Neuro: Positive for weakness. 12:37 All other systems are negative. Exam: 12:37 Constitutional: This is a well developed, well nourished patient who is awake, alert, jmm and in no acute distress. Head/Face: atraumatic. Eyes: EOMI, no conjunctival erythema appreciated ENT: Moist Mucus Membranes Neck: Trachea midline, Supple Chest/axilla: Normal chest wall appearance and motion. Cardiovascular: Regular rate and rhythm. No edema appreciated 12:37 Abdomen/GI: Non distended, soft Back: Normal ROM Skin: General appearance color normal MS/ Extremity: Moves all extremities, no obvious deformities appreciated, no edema noted to the lower extremities Neuro: Awake and alert, normal gait Psych: Behavior is normal, Mood is normal, Patient is cooperative and pleasant 12:37 Respiratory: diminished lung sounds on the left. Vital Signs: 12:09 Pulse 78; Resp 18; Temp 97.6; Pulse Ox 98% on R/A; Weight 74.84 kg; Height 5 ft. 9 in. mg2 (175.26 cm); Pain 0/10; 12:40 BP 112 / 64; mg2 13:22 BP 116 / 66; Pulse 65; Resp 18; Pulse Ox 100% on R/A; mg2 13:52 BP 135 / 74; Pulse 62; Resp 18; Pulse Ox 100% on R/A; mg2 15:25 BP 114 / 55; Pulse 77; Resp 18; Pulse Ox 99% on R/A; mg2 12:09 Body Mass Index 24.37 (74.84 kg, 175.26 cm) mg2 MDM: 12:28 Patient medically screened. [facility] 15:14 Data reviewed: vital signs, nurses notes. Counseling: I had a detailed discussion with [facility] the patient and/or guardian regarding: the historical points, exam findings, and any diagnostic results supporting the discharge/admit diagnosis, lab results, radiology results, the need for further work-up and treatment in the hospital. ED course: I discussed the patient with Dr. Medina whom accepted admission. . 08/30 12:19 Order name: Basic Metabolic Panel; Complete Time: 13:10 [facility] 08/30 12:19 Order name: CBC with Diff; Complete Time: 12:51 [facility] 08/30 12:19 Order name: LFT's; Complete Time: 13:10 [facility] 08/30 12:19 Order name: Magnesium; Complete Time: 13:10 [facility] 08/30 12:19 Order name: NT PRO-BNP; Complete Time: 13:10 [facility] 08/30 12:19 Order name: PT-INR; Complete Time: 13:01 [facility] 08/30 12:19 Order name: Troponin (emerg Dept Use Only); Complete Time: 13:10 [facility] 08/30 12:19 Order name: XRAY Chest (1 view); Complete Time: 13:10 [facility] 08/30 12:19 Order name: Lactate; Complete Time: 13:01 [facility] 08/30 12:19 Order name: Procalcitonin; Complete Time: 13:15 [facility] 08/30 12:19 Order name: Blood Culture Adult (2) [facility] 08/30 15:12 Order name: Urine Dipstick--Ancillary (enter results); Complete Time: 15:48 08/30 16:26 Order name: Blood Culture [facility] 08/30 12:19 Order name: EKG; Complete Time: 12:21 [facility] 08/30 12:19 Order name: Cardiac monitoring; Complete Time: 12:38 [facility] 08/30 12:19 Order name: EKG - Nurse/Tech; Complete Time: 12:38 [facility] 08/30 12:19 Order name: IV Saline Lock; Complete Time: 12:38 [facility] 08/30 12:19 Order name: Labs collected and sent; Complete Time: 12:38 [facility] 08/30 12:19 Order name: O2 Per Protocol; Complete Time: 12:38 [facility] 08/30 12:19 Order name: O2 Sat Monitoring; Complete Time: 12:38 [facility] 08/30 12:19 Order name: Urine Dipstick-Ancillary (obtain specimen); Complete Time: 14:36 [facility] 08/30 13:15 Order name: Misc. Order: ambulate with o2 monitoring; Complete Time: 14:02 [facility] Administered Medications: 13:13 Drug: Xopenex (3) 1.25 mg Route: Inhalation; mg2 14:03 Follow up: Response: No adverse reaction; Marked relief of symptoms mg2 Disposition: 16:51 Co-signature as Attending Physician, Armin Rodriguez MD. rn Disposition: 08/30/19 15:15 Hospitalization ordered by Lee Medina for Observation. Preliminary diagnosis is Chronic obstructive pulmonary disease with (acute) exacerbation. - Bed requested for Telemetry/MedSurg (observation). - Status is Observation. iw - Condition is Stable. - Problem is an acute exacerbation. - Symptoms are unchanged. UTI on Admission? No Signatures: Dispatcher [employer] EDMS Shania Lombardi bd Matt George PA PA jmm Williams, Irene, RN RN iw Armin Rodriguez MD MD rn Gardose, Michele, RN RN mg2 Corrections: (The following items were deleted from the chart) 15:57 15:15 Hospitalization Ordered by [facility] for Observation. Preliminary bd diagnosis is Chronic obstructive pulmonary disease with (acute) exacerbation. Bed requested for Telemetry/MedSurg (observation). Status is Observation. Condition is Stable. Problem is an acute exacerbation. Symptoms are unchanged. UTI on Admission? No. [facility] 16:36 15:57 08/30/2019 15:15 Hospitalization Ordered by [facility] for Observation. iw Preliminary diagnosis is Chronic obstructive pulmonary disease with (acute) exacerbation. Bed requested for Telemetry/MedSurg (observation). Status is Observation. Condition is Stable. Problem is an acute exacerbation. Symptoms are unchanged. UTI on Admission? No. bd
[2019-08-30 15:37] LABS: Urine Blood 1+ (NEG); Urine Glucose NEGATIVE (NEG); Urine Protein NEGATIVE (NEG); Urine Specific Gravity >1.030 (1.005-1.030)
--- NOTE | 2019-08-30 15:51 | P.HP ---
Certification for Inpatient Patient admitted to: Observation With expected LOS: <2 Midnights Patient will require the following post-hospital care: Home Health Services Practitioner: I am a practitioner with admitting privileges, knowledge of patient current condition, hospital course, and medical plan of care. Services: Services provided to patient in accordance with Admission requirements found in Title 42 Section 412.3 of the Code of Federal Regulations Patient History Date of Service: 08/30/19 Primary Care Provider: Dr. Antunez Reason for admission: Shortness of breath History of Present Illness: 84-year-old male with history of CAD, AFib without chronic anti coalition therapy, COPD, hypertension and former tobacco use. Patient was recently in the hospital and treated for pneumonia. He has since finished treatment. Over the last couple of days he has been having more shortness of breath. Some wheezing noted. He denies any fever, chills. He has had poor oral intake. His daughter brought him in due to increasing weakness. In the ER patient evaluated. Vital signs stable. Patient did not appear tachypneic. Room-air saturations within normal range but when moving around O2 saturations decreased below 88%. Chest x-ray showed resolving left lower lobe pneumonia likely atelectasis. White count 6.4, hemoglobin 12.4, platelet count of 206. Sodium 140, potassium 3.9, creatinine within normal range. Glucose 82. GFR of 82. Pro calcitonin negative. Lactic acid level negative. Influenza test pending. Patient was admitted for observation. When I saw the patient ER, he appeared comfortable. Daughter at bedside. Daughter has reported increasing weakness over the last several days. She also reports increase memory loss over the past year. Patient has home health. Patient did not appear septic. Allergies No Known Allergies Allergy (Uncoded 08/14/19 23:17) Unknown No Known Drug Allergies Allergy (Uncoded 11/20/14 01:30) Unknown Home medications list reviewed: Yes Home Medications: Donepezil HCl 1 tab PO BEDTIME 08/14/19 Ferrous Sulfate 1 tab PO SEECOM 08/14/19 Omeprazole [Prilosec] 1 cap PO DAILY 08/14/19 Pseudoephedrine HCl [12 Hour Cold] 1 tab PO DAILY 08/14/19 carvediloL [Coreg*] 1 tab PO BID 08/14/19 Amox/Clavulanate [Augmentin 875-125 Tab] 1 each PO BID #10 tab 08/17/19 predniSONE [Prednisone] 50 mg PO DAILY #5 tablet 08/17/19 - Past Medical/Surgical History Diabetic: No -: Hyperlipidemia -: COPD -: Hypertension -: CAD with prior stent -: GERD -: AFib without chronic anti coagulation therapy -: Dementia -: Bilateral knee replacement Psychosocial/ Personal History: Currently lives with daughter. - Family History Mother -: Diabetes Father -: Heart disease Brother -: Heart disease Notes: of heart attack - Social History Smoking Status: Former smoker Alcohol use: No CD- Drugs: No Caffeine use: Yes Place of Residence: Home Review of Systems General: Weakness Eyes: Unremarkable ENT: Unremarkable Respiratory: Shortness of Breath, Wheezing, As per HPI Cardiovascular: Unremarkable Gastrointestinal: Unremarkable Genitourinary: Unremarkable Musculoskeletal: Unremarkable Integumentary: Unremarkable Neurological: Other (Increasing memory loss), As per HPI Lymphatics: Unremarkable Physical Examination - Physical Exam General: Alert, In no apparent distress, Oriented x3, Cooperative HEENT: Atraumatic, Normocephalic, Mucous membr. moist/pink Neck: Supple Respiratory: Expiratory wheezes (Occasional wheezing) Cardiovascular: Irregular heart rate/rhythm (AFib rate controlled) Gastrointestinal: Normal bowel sounds, Soft and benign, Non-distended, No tenderness, No masses, No rebound, No guarding Musculoskeletal: No erythema, No tenderness, No warmth Integumentary: No tenderness/swelling, No erythema, No warmth, No cyanosis Neurological: Normal speech, Normal strength at 5/5 x4 extr, Normal tone, Dementia (Minimal dementia) - Studies Laboratory Data (last 24 hrs) 08/30/19 12:25: PT 13.9 H, INR 1.19 08/30/19 12:25: WBC 6.4, Hgb 12.4 L, Hct 36.8 L, Plt Count 206 08/30/19 12:25: Sodium 140, Potassium 3.9, BUN 16, Creatinine 0.88, Glucose 82, Magnesium 2.2, Total Bilirubin 2.2 H, AST 16, ALT 15, Alkaline Phosphatase 61 Assessment and Plan - Plan Impression: Shortness of breath likely COPD exacerbation Recent left lower lobe pneumonia resolving now with atelectasis Atrial fibrillation not on chronic anti coagulation therapy Hypertension CAD with prior stent Former Tobacco Mild protein malnutrition Dementia Plan: Shortness of breath likely COPD exacerbation: Patient we admitted for further evaluation and treatment. Will monitor telemetry. Pro calcitonin negative. Doubt no need for antibiotics at this time. Will monitor CBC. Patient not on chronic therapy for COPD. Will start perforomist 1 unit dose twice daily. Will continue with albuterol/Atrovent as needed. Will also provide prednisone 10 mg 1 pill twice daily. Will provide incentive spirometer. Patient may require oxygen at discharge. Will have respiratory evaluate this tomorrow. Recheck chest x-ray tomorrow. Likely home on prednisone taper and perforomist 1 unit dose twice daily/albuterol as needed for shortness of breath. Would recommend follow up with pulmonology as an outpatient. Patient will continue with home health at discharge. Anticipate improvement over the next 24 hr. I will turn the service over to the hospitalist team tomorrow. I will go plan of care with him. Recent left lower lobe pneumonia resolving now with atelectasis: Pro calcitonin negative. Recheck chest x-ray tomorrow. Provide incentive spirometer. No need for antibiotics at this time. Atrial fibrillation not on chronic anti coagulation therapy: Will provide DVT prophylaxis. Will start aspirin from home medication. No need for chronic anti coagulation therapy. Will continue with carvedilol 6.25 mg 1 pill twice daily as well. Hypertension: Continue carvedilol 6.25 mg 1 pill twice daily. CAD with prior stent: Continue aspirin 81 mg daily. Former Tobacco: Patient no longer spokes. Mild protein malnutrition: Will have dietary assess and treat. His worsening dementia may be a component of this. Dementia: Continue with home medication Aricept. Will recommend neurology evaluation as an outpatient. Will provide education on dementia for daughter. Advanced directives address in detail. Patient is do not resuscitate. Daughter may need to consider hospice in the future if dementia continue to worsen. Discharge Plan: Home Plan to discharge in: 24 Hours - Advance Directives Does patient have a Living Will: No Does patient have a Durable POA for Healthcare: No - Code Status/Comfort Care Code Status Assessed: Yes (Patient is do not resuscitate) Time Spent Managing Pts Care (In Minutes): 55
[2019-08-30] MEDS ORDERED: ACETAMINOPHEN 500 MG TAB PO PRN (16:15)
[2019-08-30] MEDS ORDERED: ALBUTEROL 2.5 MG/3 ML NEB SOL NEB PRN (16:15)
[2019-08-30] MEDS ORDERED: ONDANSETRON 4 MG/2 ML VIAL IV PRN (16:15)
[2019-08-30] MEDS ORDERED: IPRATROPIUM BROM 0.5MG/2.5ML NEB PRN (16:15)
[2019-08-30 17:28] VITALS: BMI 23.3
[2019-08-30] MEDS: predniSONE 10 MG TAB PO SCH ×2 (17:41→21:00)
[2019-08-30] MEDS: ENOXAPARIN 40 MG/0.4 ML SQ SCH (17:41)
[2019-08-30] MEDS: NA CHLORIDE 0.9% 1,000 ML IV SCH (17:41)
[2019-08-30] MEDS: ARFORMOTEROL TARTRATE 15 MCG/2 ML VIAL.NEB NEB SCH (20:28)
[2019-08-30] MEDS ORDERED: DONEPEZIL HCL 5 MG TAB PO SCH (21:00)
[2019-08-30] MEDS: carvediloL 6.25 MG TAB PO SCH (21:13)
[2019-08-31 01:19] LABS: Urine Appearance CLEAR; Urine Bilirubin NEGATIVE (NEG); Urine Blood TRACE (NEG); Urine Color YELLOW; Urine Glucose NEGATIVE (NEG); Urine Protein NEGATIVE (NEG); Urine Specific Gravity <=1.005 (1.005-1.030); Urine pH 5.5 (5.0-7.0)
[2019-08-31 01:20] LABS: Urine Microscopic Reflex ORDER UMIC
[2019-08-31 02:23] LABS: Urine Bacteria <20 /HPF (NONE SEEN); Urine Culture Reflex Order NOT NEEDED; Urine RBC <5 /HPF (NONE SEEN)
[2019-08-31 06:01] LABS: Absolute Lymphocytes (CBC) 1.3 K/uL (0.7-4.9); Basophils % 0.7 % (0-1.3); Hematocrit 36.1 % (39.6-49.0); Lymphocytes % 18.6 % (15.3-44.8); MPV 10.3 fL (7.6-11.3); RBC Red Blood Cell Count 3.61 M/uL (4.33-5.43)
--- NOTE | 2019-08-31 06:42 | RAD REPORT ---
EXAM DESCRIPTION: RAD - Chest Pa And Lat (2 Views) - 08/31/2019 6:06 am CLINICAL HISTORY: Follow up COPD, shortness of breath COMPARISON: Chest Single View dated 08/30/2019; Chest Single View dated 08/14/2019 TECHNIQUE: Frontal and lateral views of the chest were obtained. FINDINGS: The lungs are normal volume. Baseline chronic interstitial lung disease present. There is continued improvement in the left base aeration since prior imaging. Little remnant infiltrate remain s. Heart size is normal and central vasculature is within normal limits. No pleural effusion or pneu mothorax seen. No acute bony finding noted. No aortic abnormality. IMPRESSION: Continued clearing of the left lung base pneumonia. No new or progressive finding.
[2019-08-31 06:55] LABS: Magnesium 2.4 mg/dL (1.8-2.4); Potassium 4.5 mmol/L (3.5-5.1); Thyroid Stimulating Hormone 0.947 uIU/mL (0.360-3.740)
[2019-08-31] MEDS ORDERED: PANTOPRAZOLE 40MG TABLET PO SCH (07:30)
[2019-08-31] MEDS: ARFORMOTEROL TARTRATE 15 MCG/2 ML VIAL.NEB NEB SCH (08:20)
[2019-08-31 08:28] VITALS: TEMP 97.8
[2019-08-31] MEDS: carvediloL 6.25 MG TAB PO SCH (08:30)
[2019-08-31] MEDS: ENOXAPARIN 40 MG/0.4 ML SQ SCH (08:30)
[2019-08-31] MEDS: predniSONE 10 MG TAB PO SCH (08:30)
[2019-08-31] MEDS ORDERED: ASPIRIN EC 81 MG TAB PO SCH (09:00)
[2019-08-31] MEDS ORDERED: FOLIC ACID 1 MG TABLET PO SCH (09:00)
--- NOTE | 2019-08-31 11:32 | RAD REPORT ---
EXAM DESCRIPTION: CT - Thorax Wo Con CLINICAL HISTORY: Chest pain SOB, Recent pneumonia. H/o Pulmonary fibrosis?? COMPARISON: Chest For Pe Angio dated 05/06/2017; Liver Only dated 08/15/2019 FINDINGS: Mild interstitial and airspace opacities are present in the medial left lung base likely r epresenting infiltrate/ pneumonia. Minimal atelectasis is present in the posterior right lung base. T race pleural effusion bilaterally. No pneumothorax. 14 mm pretracheal lymph node is present, unchanged. No bulky lymphadenopathy in the axillary, mediast inal or hilar regions. No concerning bony finding. No gross upper abdominal finding. All CT scans are performed using dose optimization technique as appropriate and may include automated exposure control or mA/KV adjustment according to patient size. IMPRESSION: Mild infiltrate/ pneumonia medial left lung base.No evidence of pulmonary fibrosis seen.
[2019-08-31] MEDS: NA CHLORIDE 0.9% 1,000 ML IV SCH (12:15)
[2019-08-31 12:41] VITALS: BP 119/55
--- NOTE | 2019-08-31 14:13 | P.DS ---
Admission Date: 08/30/19 Discharge Date: 08/31/19 Primary Care Provider: Dr. Antunez Disposition: DC HOME/HOME HEALTH CARE Discharge Condition: GOOD Reason for Admission: Shortness of breath Procedures: COMMENTS: MITRAL ANNULAR CALCIFICATION. LEFT VENTRICULAR HYPERTROPHY. NORMAL LEFT VENTRICULAR EJECTION FRACTION. AORTIC SCLEROSIS WITH NO STENOSIS. MILD TRICUSPID REGURGITATION. NORMAL RIGHT VENTRICULAR SYSTOLIC PRESSURE. - Problems (1) COPD exacerbation Status: Acute Brief History of Present Illness: "84-year-old male with history of CAD, AFib without chronic anti coalition therapy, COPD, hypertension and former tobacco use. Patient was recently in the hospital and treated for pneumonia. He has since finished treatment. Over the last couple of days he has been having more shortness of breath. Some wheezing noted. He denies any fever, chills. He has had poor oral intake. His daughter brought him in due to increasing weakness. In the ER patient evaluated. Vital signs stable. Patient did not appear tachypneic. Room-air saturations within normal range but when moving around O2 saturations decreased below 88%. Chest x-ray showed resolving left lower lobe pneumonia likely atelectasis. White count 6.4, hemoglobin 12.4, platelet count of 206. Sodium 140, potassium 3.9, creatinine within normal range. Glucose 82. GFR of 82. Pro calcitonin negative. Lactic acid level negative. Influenza test pending. Patient was admitted for observation" Hospital Course: Patient was admitted for probable COPD except patient given hypoxia. He was initiated on low-dose steroids, DuoNeb and longer-acting maintenance inhaler. Echocardiogram is completed. Patient's daughter did report possible history of pulmonary fibrosis however CT chest ruled out any evidence to suggest pathology. Patient however still had infiltrate noted on CT chest which may still be a lag from recent pneumonia; however, sputum culture preliminary report is positive, will follow final cultures. Patient will be discharged home on oral antibiotics. He was assessed for home oxygen and did not meet criteria. He remains stable for discharge home. Vital Signs/Physical Exam: Temp Pulse Resp BP Pulse Ox 97.8 F 72 16 119/55 L 96 08/31/19 12:00 08/31/19 12:00 08/31/19 12:00 08/31/19 12:00 08/31/19 12:00 General: Alert, In no apparent distress HEENT: Atraumatic, PERRLA, EOMI Neck: Supple, JVD not distended Respiratory: Clear to auscultation bilaterally, Normal air movement, Diminished (On L) Cardiovascular: Regular rate/rhythm, Normal S1 S2 Gastrointestinal: Normal bowel sounds, No tenderness Musculoskeletal: No tenderness Integumentary: No rashes Neurological: Normal speech, Normal affect Lymphatics: No axilla or inguinal lymphadenopathy Laboratory Data at Discharge: WBC 7.2 K/uL (4.3-10.9) 08/31/19 05:49 Hgb 12.3 g/dL (13.6-17.9) L 08/31/19 05:49 Hct 36.1 % (39.6-49.0) L 08/31/19 05:49 Plt Count 231 K/uL (152-406) 08/31/19 05:49 PT 13.9 SECONDS (9.5-12.5) H 08/30/19 12:25 INR 1.19 08/30/19 12:25 Sodium 141 mmol/L (136-145) 08/31/19 05:49 Potassium 4.5 mmol/L (3.5-5.1) 08/31/19 05:49 BUN 15 mg/dL (7-18) 08/31/19 05:49 Creatinine 0.82 mg/dL (0.55-1.3) 08/31/19 05:49 Glucose 104 mg/dL (74-106) 08/31/19 05:49 Magnesium 2.4 mg/dL (1.8-2.4) 08/31/19 05:49 Total Bilirubin 2.2 mg/dL (0.2-1.0) H 08/30/19 12:25 AST 16 U/L (15-37) 08/30/19 12:25 ALT 15 U/L (12-78) 08/30/19 12:25 Alkaline Phosphatase 61 U/L (45-117) 08/30/19 12:25 Imagings Data: IMPRESSION: Mild infiltrate/ pneumonia medial left lung base.No evidence of pulmonary fibrosis seen. Home Medications: Donepezil HCl 1 tab PO BEDTIME 08/14/19 Ferrous Sulfate 1 tab PO SEECOM 08/14/19 Omeprazole [Prilosec] 1 cap PO DAILY 08/14/19 carvediloL [Coreg*] 1 tab PO BID 08/14/19 Albuterol Inhaler [Ventolin Inhaler*] 2 puff IN Q4H PRN 08/30/19 Multivitamin [Multiple Vitamins] 1 each PO ONCE 08/30/19 Donepezil [Aricept*] 5 mg PO BEDTIME #30 tab 08/31/19 Fluticasone/Salmeterol [Advair 250-50 Diskus] 1 each IH BID #1 blst.w.dev Folic Acid 1 mg PO BID #60 tablet 08/31/19 Levofloxacin [Levaquin] 500 mg PO DAILY #5 tablet 08/31/19 predniSONE [Deltasone*] 10 mg PO BID #10 tab 08/31/19 New Medications: Donepezil [Aricept*] 5 mg PO BEDTIME #30 tab Fluticasone/Salmeterol [Advair 250-50 Diskus] 1 each IH BID #1 blst.w.dev Folic Acid 1 mg PO BID #60 tablet Levofloxacin [Levaquin] 500 mg PO DAILY #5 tablet predniSONE [Deltasone*] 10 mg PO BID #10 tab Diet: AHA Followup: Norman Moon MD [Primary Care Provider] - 1-2 Weeks (call to schedule appointment)
--- NOTE | 2019-08-31 14:32 | ECHO ---
HEIGHT: 5 ft 9 in WEIGHT: 158 lb 0 oz DATE OF STUDY: 08/31/[address]: Lee Medina DO 2-DIMENSIONAL: YES M.MODE: YES DOPPLER: YES COLOR FLOW: YES TDS: NO PORTABLE: NO DEFINITY: NO BUBBLE STUDY: NO DIAGNOSIS: SHORTNESS OF BREATH CARDIAC HISTORY: CATHERIZATION: YES SURGERY: NO PROSTHETIC VALVE: NO PACEMAKER: NO MEASUREMENTS (cm) DIASTOLIC (NORMALS) SYSTOLIC (NORMALS) IVSd 1.3 (0.6-1.2) LA Diam 4.8 (1.9-4.0) LVEF 56% LVIDd 4.2 (3.5-5.7) LVIDs 3.0 (2.0-3.5) %FS 29% LVPWd 1.3 (0.6-1.2) Ao Diam 3.4 (2.0-3.7) 2 DIMENSIONAL ASSESSMENT: RIGHT ATRIUM: NORMAL LEFT ATRIUM: DILATED RIGHT VENTRICLE: NORMAL LEFT VENTRICLE: LEFT VENTRICULAR HYPERTROPHY TRICUSPID VALVE: NORMAL MITRAL VALVE: MITRAL ANNULAR CALCIFICATION PULMONIC VALVE: NORMAL AORTIC VALVE: SCLEROSIS PERICARDIAL EFFUSION: NONE AORTIC ROOT: NORMAL LEFT VENTRICULAR WALL MOTION: NORMAL DOPPLER/COLOR FLOW: MILD TRICUSPID REGURGITATION. COMMENTS: MITRAL ANNULAR CALCIFICATION. LEFT VENTRICULAR HYPERTROPHY. NORMAL LEFT VENTRICULAR EJECTION FRACTION. AORTIC SCLEROSIS WITH NO STENOSIS. MILD TRICUSPID REGURGITATION. NORMAL RIGHT VENTRICULAR SYSTOLIC PRESSURE. TECHNOLOGIST: Melody ALEGRE
[2019-08-31 14:59] VITALS: O2SAT 96
[2019-08-31] MEDS ORDERED: ENSURE ENLIVE 237 ML CAN PO SCH (21:00)
== END 2019-08-31 15:53 | disposition home health service (06) ==
LOC: ER 11:43 → ERHOLD 15:33 → 4TH 16:18
PROVIDERS: ADMIT Family Medicine; ATTEND Family Medicine
DX: J44.1 Chronic obstructive pulmonary disease with (acute) exacerbation (principal); I25.10 Atherosclerotic heart disease of native coronary artery without angina pectoris; I48.91 Unspecified atrial fibrillation; I10 Essential (primary) hypertension; Z87.891 Personal history of nicotine dependence; E78.5 Hyperlipidemia, unspecified; Z95.5 Presence of coronary angioplasty implant and graft; Z96.653 Presence of artificial knee joint, bilateral
CPT/HCPCS: 93005; 93306; 87040 ×2; 87070; 85025 ×2; 80048 ×2; 36415; 83735 ×2; 87205; 85610; 80076; 83605; 84443; 81003; 84484; 84439; 84145; 83880; 87804 ×2; 71250; 71045; 71046; 94640; 99285; J1650 ×2; J7605 ×2; J7030; G0378 ×3; 81015; J7512

== ENCOUNTER 2019-09-10 04:16 | Inpatient (IN) | payer OTHER ==
[2019-09-10] MEDS ORDERED: ALBUTEROL 2.5 MG/3 ML NEB SOL ONE (04:44)
[2019-09-10] MEDS ORDERED: IPRATROPIUM BROM 0.5MG/2.5ML ONE (04:44)
[2019-09-10 05:03] LABS: Absolute Lymphocytes (CBC) 1.6 K/uL (0.7-4.9); Basophils % 0.5 % (0-1.3); Hematocrit 39.3 % (39.6-49.0); Lymphocytes % 21.4 % (15.3-44.8); MPV 10.7 fL (7.6-11.3); RBC Red Blood Cell Count 3.96 M/uL (4.33-5.43)
[2019-09-10 05:14] LABS: Protime INR 1.18
[2019-09-10 05:24] LABS: ALT/SGPT 40 U/L (12-78); AST/SGOT 20 U/L (15-37); Albumin 3.6 g/dL (3.4-5.0); Alkaline Phosphatase 68 U/L (45-117); BUN Blood Urea Nitrogen 22 mg/dL (7-18); Bicarbonate 28 mmol/L (21-32); Bilirubin Direct 0.9 mg/dL (0-0.2); Bilirubin Total 3.5 mg/dL (0.2-1.0); CKMB Creatine Kinase MB < 1.0 ng/mL (0.3-3.6); Creatine Phosphokinase 17 U/L (39-308); Glucose Level 134 mg/dL (74-106); Lipase 47 U/L (73-393); Magnesium 2.1 mg/dL (1.8-2.4); NT PRO-BNP 1929 pg/mL (<450); Potassium 3.5 mmol/L (3.5-5.1); Protein, Total 6.6 g/dL (6.4-8.2); Sodium Level 140 mmol/L (136-145); Troponin (Emerg Dept Use Only) < 0.02 ng/mL (0.0-0.045)
--- NOTE | 2019-09-10 05:39 | ER ---
Nurse's Notes [facility] Name: Elijah Thibodeaux Age: 84 yrs Sex: Male : 1935 Arrival Date: 09/10/2019 Time: 04:16 Bed 15 Private MD: Diagnosis: Chronic obstructive pulmonary disease with (acute) exacerbation Presentation: 09/10 04:25 Presenting complaint: family member states he started to complaint of SOB yesterday rr5 afternoon he has cough, history of COPD. It looks like his constipated too, feels he wants go bowel movement but nothing comes out. 04:25 Transition of care: patient was not received from another setting of care. Onset of rr5 symptoms was September 09, 2019. Risk Assessment: Do you want to hurt yourself or someone else? Patient reports no desire to harm self or others. Initial Sepsis Screen: Does the patient meet any 2 criteria? No. Patient's initial sepsis screen is negative. Does the patient have a suspected source of infection? Yes: Productive cough/pneumonia. Note patient was admitted last week with diagnosis of pneumonia. finished the course of antibiotic after a day or two he feels fine then he complaining again of SOB. loss of appetite, he loss 5-7 lbs per week. last BM 2 days ago. Care prior to arrival: None. 04:25 Method Of Arrival: Wheelchair rr5 04:25 Acuity: FABIÁN 3 rr5 Triage Assessment: 04:25 Respiratory: Onset: The symptoms/episode began/occurred gradually, the patient has mild rr5 shortness of breath. Historical: - Allergies: 04:30 No Known Allergies; rr5 - Home Meds: 04:30 aspirin 81 mg Oral TbEC 1 tab once daily [Active]; carvedilol 6.25 mg Oral tab 1 tab 2 rr5 times per day [Active]; donepezil 5 mg Oral TbDL 1 tab once daily [Active]; Iron CR Oral [Active]; Men's One Daily 400-300 mcg Oral tab [Active]; omeprazole 40 mg Oral cpDR 1 cap once daily [Active]; pseudophedrine hydrocholride otc [Active]; folic acid 1 mg oral tab [Active]; - PMHx: 04:30 Atrial Fib; COPD; lung fibrosis; Hypertension; Dementia; rr5 - PSHx: 04:30 Knee surgery; Heart stents; rr5 - Immunization history:: Adult Immunizations up to date. - Coronavirus screen:: The patient has NOT traveled to [place], [place], or [place] in the past 14 days. - Social history:: Smoking status: Patient denies any tobacco usage or history of. Patient/guardian denies using alcohol, street drugs. - Ebola Screening: : Patient negative for fever greater than or equal to 101.5 degrees Fahrenheit, and additional compatible Ebola Virus Disease symptoms Patient denies exposure to infectious person Patient denies travel to an Ebola-affected area in the 21 days before illness onset. Screenin:59 Abuse screen: Denies threats or abuse. Denies injuries from another. Nutritional rr5 screening: No deficits noted. Tuberculosis screening: No symptoms or risk factors identified. Fall Risk Secondary diagnosis (15 points) dementia, IV access (20 points). Gait- Weak (10 pts.). Total Smith Fall Scale indicates High Risk Score (45 or more points). Fall prevention measures have been instituted. Side Rails Up X 2 Placed Close to Nursing Station Frequent Obs/Assessments Occuring Family Present and informed to notify staff if the need to leave the bedside As available patient and family educated on Fall Prevention Program and Strategies. Assessment: 04:30 General: Appears in no apparent distress. uncomfortable, Behavior is calm, cooperative. rr5 Pain: Denies pain. Neuro: Level of Consciousness is awake, alert, obeys commands, Oriented to person, place, time, situation, Reports weakness. Cardiovascular: Capillary refill < 3 seconds Patient's skin is warm and dry. Rhythm is atrial fibrillation. 04:30 Respiratory: Airway is patent Respiratory effort is even, unlabored, shallow, rr5 Respiratory pattern is tachypnea Parent/caregiver reports the patient having shortness of breath on exertion cough that is. GI: Abdomen is flat, Parent/caregiver reports the patient having anorexia, constipation, epigastric pain. : No signs and/or symptoms were reported regarding the genitourinary system. EENT: No signs and/or symptoms were reported regarding the EENT system. Derm: Skin is jaundiced. Musculoskeletal: Capillary refill < 3 seconds. 04:30 GI: Patient currently denies abdominal pain. rr5 05:00 Reassessment: positive stool brown, soft,small in amount, after care done, bed linen rr5 changed. 05:20 Reassessment: Patient appears in no apparent distress at this time. Patient is alert, rr5 oriented x 3, equal unlabored respirations, skin warm/dry/pink. resting eyes closed breathing spontaneously at room air. Patient states symptoms have improved. 06:15 Reassessment: Patient appears in no apparent distress at this time. Patient is alert, rr5 oriented x 3, equal unlabored respirations, skin warm/dry/pink. no complaints made, for transfer to room 205 Patient states feeling better. Patient states symptoms have improved. Vital Signs: 04:30 BP 149 / 72; Pulse 80; Resp 21; Temp 98; Pulse Ox 99% ; Weight 68.04 kg; Height 5 ft. 9 rr5 in. (175.26 cm); 05:11 BP 118 / 67; Pulse 88; Resp 20; Pulse Ox 100% on Nebulizer Mask; Pain 0/10; rr5 06:15 BP 120 / 57; Pulse 78; Resp 19; Temp 97.8; Pulse Ox 99% ; Pain 0/10; rr5 04:30 Body Mass Index 22.15 (68.04 kg, 175.26 cm) rr5 ED Course: 04:16 Patient arrived in ED. cl3 04:17 Jr Del Valle, AARTI is Primary Nurse. rr5 04:19 Marcos Martinez MD is Attending Physician. tw4 04:30 Arm band placed on right wrist. rr5 04:30 Placed in gown. Bed in low position. Call light in reach. Side rails up X2. Cardiac rr5 monitor on. Pulse ox on. NIBP on. 04:32 Triage completed. rr5 04:50 Inserted saline lock: 20 gauge in right antecubital area, using aseptic technique. rr5 Blood collected. 05:15 XRAY CXR (1 view) In Process Unspecified. EDMS 05:38 Varinder Gant MD is Hospitalizing Provider. tw4 05:39 No provider procedures requiring assistance completed. rr5 06:37 Patient admitted, IV remains in place. intact, No redness/swelling at site. rr5 Administered Medications: 04:50 Drug: DuoNeb (3:1) (2.5 mg - 0.5 mg) 3 ml Route: Nebulizer; rr5 06:00 Follow up: Response: No adverse reaction; Marked relief of symptoms rr5 Outcome: 05:38 Decision to Hospitalize by Provider. tw4 06:15 Admitted to Med/surg accompanied by tech, via stretcher, room 205, with chart, Report rr5 called to ayala 06:15 Condition: stable 06:15 Instructed on the need for admit. rr5 06:38 Patient left the ED. rr5 Signatures: Dispatcher [employer] Marcos Mathew MD MD tw4 Jr Del Valle RN RN rr5 Clarita Wyatt cl3 Corrections: (The following items were deleted from the chart) 04:35 04:30 BP 149 / 72; Pulse 80bpm; Resp 24bpm; Pulse Ox 99%; Temp 98F; 68.04 kg; Height 5 rr5 ft. 9 in.; BMI: 22.1; rr5
--- NOTE | 2019-09-10 05:39 | EDPHYS ---
Physician Documentation [facility] Name: Elijah Thibodeaux Age: 84 yrs Sex: Male : 1935 Arrival Date: 09/10/2019 Time: 04:16 Bed 15 Private MD: ED Physician Marcos Martinez HPI: 09/10 05:20 This 84 yrs old Male presents to ER via Wheelchair with complaints of tw4 Shortness Of Breath. 05:20 The patient has shortness of breath at rest. Onset: The symptoms/episode began/occurred tw4 yesterday. Duration: The symptoms are continuous, and are steadily getting worse. The patient's shortness of breath has no apparent modifying factors. Associated signs and symptoms: The patient has no apparent associated signs or symptoms. Severity of symptoms: At their worst the symptoms were moderate in the emergency department the symptoms are unchanged. The patient has experienced similar episodes in the past. Historical: - Allergies: 04:30 No Known Allergies; rr5 - Home Meds: 04:30 aspirin 81 mg Oral TbEC 1 tab once daily [Active]; carvedilol 6.25 mg Oral tab 1 tab 2 rr5 times per day [Active]; donepezil 5 mg Oral TbDL 1 tab once daily [Active]; Iron CR Oral [Active]; Men's One Daily 400-300 mcg Oral tab [Active]; omeprazole 40 mg Oral cpDR 1 cap once daily [Active]; pseudophedrine hydrocholride otc [Active]; folic acid 1 mg oral tab [Active]; - PMHx: 04:30 Atrial Fib; COPD; lung fibrosis; Hypertension; Dementia; rr5 - PSHx: 04:30 Knee surgery; Heart stents; rr5 - Immunization history:: Adult Immunizations up to date. - Coronavirus screen:: The patient has NOT traveled to [place], [place], or [place] in the past 14 days. - Social history:: Smoking status: Patient denies any tobacco usage or history of. Patient/guardian denies using alcohol, street drugs. - Ebola Screening: : Patient negative for fever greater than or equal to 101.5 degrees Fahrenheit, and additional compatible Ebola Virus Disease symptoms Patient denies exposure to infectious person Patient denies travel to an Ebola-affected area in the 21 days before illness onset. ROS: 05:20 Constitutional: Negative for fever, chills, and weight loss, Eyes: Negative for injury, tw4 pain, redness, and discharge, Cardiovascular: Negative for chest pain, palpitations, and edema, Abdomen/GI: Negative for abdominal pain, nausea, vomiting, diarrhea, and constipation, Back: Negative for injury and pain, MS/Extremity: Negative for injury and deformity. 05:20 : Negative for injury, bleeding, discharge, and swelling, Skin: Negative for injury, rash, and discoloration, Neuro: Negative for headache, weakness, numbness, tingling, and seizure. 05:20 Respiratory: Positive for cough, shortness of breath. Exam: 05:20 Constitutional: This is a well developed, well nourished patient who is awake, alert, tw4 and in no acute distress. Head/Face: Normocephalic, atraumatic. Chest/axilla: Normal chest wall appearance and motion. Nontender with no deformity. No lesions are appreciated. Cardiovascular: Regular rate and rhythm with a normal S1 and S2. No gallops, murmurs, or rubs. Normal PMI, no JVD. No pulse deficits. Respiratory: Lungs have equal breath sounds bilaterally, clear to auscultation and percussion. No rales, rhonchi or wheezes noted. No increased work of breathing, no retractions or nasal flaring. Abdomen/GI: Soft, non-tender, with normal bowel sounds. No distension or tympany. No guarding or rebound. No evidence of tenderness throughout. Back: No spinal tenderness. No costovertebral tenderness. Full range of motion. MS/ Extremity: Pulses equal, no cyanosis. Neurovascular intact. Full, normal range of motion. Neuro: Awake and alert, GCS 15, oriented to person, place, time, and situation. Cranial nerves II-XII grossly intact. Motor strength 5/5 in all extremities. Sensory grossly intact. Cerebellar exam normal. Normal gait. Vital Signs: 04:30 BP 149 / 72; Pulse 80; Resp 21; Temp 98; Pulse Ox 99% ; Weight 68.04 kg; Height 5 ft. 9 rr5 in. (175.26 cm); 05:11 BP 118 / 67; Pulse 88; Resp 20; Pulse Ox 100% on Nebulizer Mask; Pain 0/10; rr5 06:15 BP 120 / 57; Pulse 78; Resp 19; Temp 97.8; Pulse Ox 99% ; Pain 0/10; rr5 04:30 Body Mass Index 22.15 (68.04 kg, 175.26 cm) rr5 MDM: 04:29 Patient medically screened. 09/10 04:21 Order name: Blood Culture Adult (2) 09/10 04:21 Order name: BMP; Complete Time: 05:28 09/10 05:28 Interpretation: Normal except: GLUC 134; GFR 80; BUN 22. 09/10 04:21 Order name: CBC with Diff; Complete Time: 05:28 09/10 05:28 Interpretation: Normal except: RBC 3.96; HGB 13.2; HCT 39.3; PLT 162; RDW 15.8. 09/10 04:21 Order name: Ckmb; Complete Time: 05:28 09/10 05:31 Interpretation: Within normal limits: CKMB < 1.0. 09/10 04:21 Order name: CPK; Complete Time: 05:28 09/10 05:29 Interpretation: Abnormal: CPK 17. 09/10 04:21 Order name: Hepatic Function; Complete Time: 05:28 09/10 05:29 Interpretation: Abnormal: BILIT 3.5; BILID 0.9. 09/10 04:21 Order name: Lipase; Complete Time: 05:28 09/10 05:29 Interpretation: Abnormal: LIP 47. 09/10 04:21 Order name: Magnesium; Complete Time: 05:28 09/10 05:31 Interpretation: Within normal limits: MG 2.1. 09/10 04:21 Order name: NT PRO-BNP; Complete Time: 05:28 09/10 05:29 Interpretation: Abnormal: NT PRO-BNP 1929. 09/10 04:21 Order name: PT-INR; Complete Time: 05:28 09/10 05:30 Interpretation: Normal except: PT 13.8. 09/10 04:21 Order name: Ptt, Activated; Complete Time: 05:28 09/10 05:31 Interpretation: Within normal limits: PTT 26.5. 09/10 04:21 Order name: Troponin (emerg Dept Use Only); Complete Time: 05:28 tw4 09/10 05:32 Interpretation: Within normal limits: TROPED < 0.02. tw4 09/10 06:07 Order name: Urinalysis EDMS 09/10 06:07 Order name: CBC with Automated Diff EDMS 09/10 04:21 Order name: XRAY CXR (1 view) tw4 09/10 04:21 Order name: EKG; Complete Time: 04:22 tw4 09/10 06:07 Order name: CONS Physician Consult EDMS 09/10 06:07 Order name: Heart Healthy EDMS 09/10 06:07 Order name: CBC with Automated Diff EDMS 09/10 06:07 Order name: Comprehensive Metabolic Panel EDMS 09/10 06:07 Order name: Comprehensive Metabolic Panel EDMS 09/10 06:07 Order name: Magnesium EDMS 09/10 06:07 Order name: Magnesium EDMS 09/10 06:07 Order name: NT PRO-BNP EDMS 09/10 06:08 Order name: NT PRO-BNP EDMS 09/10 06:08 Order name: Protime (+INR) EDMS 09/10 06:08 Order name: Protime (+INR) EDMS 09/10 06:08 Order name: PTT, Activated Partial Thromb EDMS 09/10 06:08 Order name: PTT, Activated Partial Thromb EDMS 09/10 04:21 Order name: Cardiac monitoring; Complete Time: 04:39 tw4 09/10 04:21 Order name: EKG - Nurse/Tech; Complete Time: 04:39 tw4 09/10 04:21 Order name: IV Saline Lock; Complete Time: 04:58 tw4 09/10 04:21 Order name: Labs collected and sent; Complete Time: 04:58 tw4 09/10 04:21 Order name: O2 Per Protocol; Complete Time: 04:58 tw4 09/10 04:21 Order name: O2 Sat Monitoring; Complete Time: 04:58 tw4 EC:32 Rate is 77 beats/min. Rhythm is irregularly irregular, A fib with Left bundle branch tw4 block. QRS [place] is Normal. SC interval is normal. QRS interval is normal. QT interval is normal. No Q waves. T waves are Peaked. No ST changes noted. Clinical impression: Abnormal EKG without significant change. Interpreted by me. Reviewed by me. Administered Medications: 04:50 Drug: DuoNeb (3:1) (2.5 mg - 0.5 mg) 3 ml Route: Nebulizer; rr5 06:00 Follow up: Response: No adverse reaction; Marked relief of symptoms rr5 Disposition: 09/10/19 05:38 Hospitalization ordered by Varinder Gant for Observation. Preliminary diagnosis is Chronic obstructive pulmonary disease with (acute) exacerbation. - Bed requested for Telemetry/MedSurg (observation). - Status is Observation. rr5 - Condition is Stable. - Problem is an ongoing problem. - Symptoms are unchanged. UTI on Admission? No Signatures: Dispatcher [employer] EDMS Kristen Tesfaye RN RN mw Wadley, Terrence, MD MD tw4 Jr Del Valle RN RN rr5 Corrections: (The following items were deleted from the chart) 06:00 05:38 Hospitalization Ordered by Varinder Gant MD for Observation. Preliminary mw diagnosis is Chronic obstructive pulmonary disease with (acute) exacerbation. Bed requested for Telemetry/MedSurg (observation). Status is Observation. Condition is Stable. Problem is an ongoing problem. Symptoms are unchanged. UTI on Admission? No. tw4 06:38 06:00 09/10/2019 05:38 Hospitalization Ordered by Varinder Gant MD for Observation. rr5 Preliminary diagnosis is Chronic obstructive pulmonary disease with (acute) exacerbation. Bed requested for Telemetry/MedSurg (observation). Status is Observation. Condition is Stable. Problem is an ongoing problem. Symptoms are unchanged. UTI on Admission? No. ju
[2019-09-10] MEDS ORDERED: ONDANSETRON 4 MG/2 ML VIAL IV PRN (06:02)
[2019-09-10] MEDS ORDERED: ALPRAZOLAM 0.25 MG TABLET PO PRN (06:02)
[2019-09-10] MEDS: IPRATROPIUM BROM 0.5MG/2.5ML NEB SCH ×3 (07:40→19:30)
[2019-09-10] MEDS: ALBUTEROL 2.5 MG/3 ML NEB SOL NEB SCH ×3 (07:40→19:30)
--- NOTE | 2019-09-10 08:51 | RAD REPORT ---
EXAM DESCRIPTION: RAD - Chest Single View - 09/10/2019 5:15 am CLINICAL HISTORY: SOB COMPARISON: Chest Pa And Lat (2 Views) dated 08/31/2019; Thorax Wo Con dated 08/31/2019 TECHNIQUE: AP portable chest image was obtained 09/10/2019 5:15 am . FINDINGS: Lung volumes are reduced compared to prior chest film. Medial left base opacification is s till present. No progressive lung process suspected. Heart size and vasculature are accentuated by th e shallow inspiration. No measurable pleural effusion and no pneumothorax. No acute bony abnormality seen. No acute aortic findings suspected. IMPRESSION: Medial left lung base interstitial opacification stable from comparison.
[2019-09-10] MEDS: NA CHLORIDE 0.9% 1,000 ML IV SCH (08:57)
[2019-09-10] MEDS: CEFTRIAXONE/SWI 1gm 1 GM/10 ML SYR IV SCH (08:58)
[2019-09-10] MEDS: AZITHROMYCIN IV 500 MG in NA CHLORIDE 0.9% 250 ML IVPB SCH (08:58)
[2019-09-10] MEDS: ENSURE HIGH PROTEIN 237 ML CAN PO SCH ×3 (08:59→20:26)
[2019-09-10] MEDS: JUVEN PACKET PO SCH ×2 (08:59→20:26)
[2019-09-10] MEDS: ENOXAPARIN 40 MG/0.4 ML SQ SCH (08:59)
--- NOTE | 2019-09-10 09:07 | P.HP ---
Certification for Inpatient Patient admitted to: Inpatient With expected LOS: >2 Midnights Patient will require the following post-hospital care: None Practitioner: I am a practitioner with admitting privileges, knowledge of patient current condition, hospital course, and medical plan of care. Services: Services provided to patient in accordance with Admission requirements found in Title 42 Section 412.3 of the Code of Federal Regulations Patient History Date of Service: 09/10/19 Reason for admission: Shortness of breath/pulmonary fibrosis History of Present Illness: Patient is an 84-year-old gentleman who came into the hospital with difficulty breathing. Patient has had recurrent admissions for dyspnea. Patient has diagnosis of idiopathic pulmonary fibrosis. Patient also has a history of COPD. Patient came into the hospital for further evaluation. In the emergency room patient has some hypoxemia. Patient had respiratory distress. Patient is given nebs, steroids, and antibiotics. He has also been very cachectic and debilitated. Patient has lost around 50 lbs in the last few months. Patient will be admitted for further evaluation. Will also get pulmonary consultation as well. Allergies No Known Allergies Allergy (Unverified 08/31/19 14:37) Home Medications: Donepezil HCl 1 tab PO BEDTIME 08/14/19 Ferrous Sulfate 1 tab PO SEECOM 08/14/19 Omeprazole [Prilosec] 1 cap PO DAILY 08/14/19 carvediloL [Coreg*] 1 tab PO BID 08/14/19 Albuterol Inhaler [Ventolin Inhaler*] 2 puff IN Q4H PRN 08/30/19 Multivitamin [Multiple Vitamins] 1 each PO ONCE 08/30/19 Donepezil [Aricept*] 5 mg PO BEDTIME #30 tab 08/31/19 Fluticasone/Salmeterol [Advair 250-50 Diskus] 1 each IH BID #1 blst.w.dev Folic Acid 1 mg PO BID #60 tablet 08/31/19 Levofloxacin [Levaquin] 500 mg PO DAILY #5 tablet 08/31/19 predniSONE [Deltasone*] 10 mg PO BID #10 tab 08/31/19 - Past Medical/Surgical History Diabetic: No -: Hyperlipidemia -: COPD -: Hypertension -: CAD with prior stent -: GERD -: AFib without chronic anti coagulation therapy -: Dementia -: dementia -: Bilateral knee replacement Psychosocial/ Personal History: Currently lives with daughter. - Family History Mother Medical History: Diabetes Father Medical History: Heart disease Brother Medical History: Heart disease Notes: of heart attack - Social History Alcohol use: No CD- Drugs: No Caffeine use: Yes Review of Systems 10-point ROS is otherwise unremarkable Physical Examination - Vital Signs Temperature: 98.2 F Blood Pressure: 145/63 Pulse: 77 Respirations: 18 Pulse Ox (%): 98 - Physical Exam General: Alert, In no apparent distress, Oriented x3 HEENT: Atraumatic, PERRLA, Mucous membr. moist/pink, EOMI, Sclerae nonicteric Neck: Supple, 2+ carotid pulse no bruit, No LAD, Without JVD or thyroid abnormality Respiratory: Diminished, Expiratory wheezes Cardiovascular: Regular rate/rhythm, Normal S1 S2, Systolic murmur Gastrointestinal: Normal bowel sounds, Soft and benign, Non-distended, No tenderness, No rebound, No guarding Musculoskeletal: No clubbing, No swelling, No tenderness Integumentary: No rashes Neurological: Normal gait, Normal speech, Sensation intact, Cranial nerves 3-12 intact, Normal affect, Abnormal strength, Abnormal tone Lymphatics: No axilla or inguinal lymphadenopathy - Studies Laboratory Data (last 24 hrs) 09/10/19 04:55: PT 13.8 H, INR 1.18, APTT 26.5 09/10/19 04:55: WBC 7.7, Hgb 13.2 L, Hct 39.3 L, Plt Count 162 D 09/10/19 04:55: Sodium 140, Potassium 3.5, BUN 22 H, Creatinine 0.90, Glucose 134 H, Magnesium 2.1, Total Bilirubin 3.5 H, AST 20, ALT 40, Alkaline Phosphatase 68, Lipase 47 L Assessment & Plan - Problems (Diagnosis) (1) COPD exacerbation Current Visit: No Status: Acute (2) Pulmonary fibrosis Current Visit: Yes Status: Acute (3) CAD (coronary artery disease) Current Visit: No Status: Acute (4) HTN (hypertension) Onset Date: 05/07/17 Current Visit: No Status: Acute Qualifiers: Hypertension type: essential hypertension Qualified Code(s): I10 - Essential (primary) hypertension (5) Hyperlipidemia Onset Date: 05/07/17 Current Visit: No Status: Acute Qualifiers: Hyperlipidemia type: pure hypercholesterolemia Qualified Code(s): E78.00 - Pure hypercholesterolemia, unspecified; E78.0 - Pure hypercholesterolemia - Plan 1. Continue with IV antibiotics 2. Awaiting sputum and blood culture 3. Repeat chest x-ray 4. Will proceed with repeat of the CT scan of the chest if pneumonia is not improved 5. Pulmonary consultation 6. Continue with nebs as needed 7. O2 per protocol 8. Continue with gentle hydration 9. Repeat labs including CBC and renal function in a.m. 10. GI and DVT prophylaxis Discharge Plan: Home Plan to discharge in: Greater than 2 days - Advance Directives Does patient have a Living Will: Yes Does patient have a Durable POA for Healthcare: Yes - Code Status/Comfort Care Code Status Assessed: Yes Code Status: Full Code Critical Care: No Time Spent Managing PTS Care (In Minutes): 45
--- NOTE | 2019-09-10 10:47 | P.PN ---
Date of Service: 09/10/19 Patient seen and examined. He is lying comfortable in bed. He is not in respiratory distress. He is tolerating room air. He denies any complain at the moment. Lungs: Bibasal crackles. Plan: Continue current antibiotics, IV steroids and bronchodilators. Pulmonary consult. PT to evaluate.
[2019-09-10 10:48] VITALS: BMI 22.1
[2019-09-10] MEDS: METHYLPREDNISOLONE 125 MG INJ IV SCH ×2 (12:40→18:19)
[2019-09-10] MEDS ORDERED: INFLUENZA VACCINE (for 3y+) 0.5 ML DOSE IMVAC ONE (13:00)
[2019-09-10] MEDS ORDERED: POTASSIUM CL SA 10 MEQ TAB PO ONE (16:00)
[2019-09-10 18:51] LABS: Urine Appearance CLEAR; Urine Blood NEGATIVE (NEG); Urine Color ORANGE; Urine Glucose 1+ (NEG); Urine Protein TRACE (NEG); Urine Specific Gravity >=1.030 (1.005-1.030); Urine pH 5.5 (5.0-7.0)
[2019-09-10 18:52] LABS: Urine Bilirubin NEGATIVE (NEG)
[2019-09-10 18:53] LABS: Urine Microscopic Reflex ORDER UMIC
[2019-09-10 18:59] LABS: Urine Bacteria 20-50 /HPF (NONE SEEN); Urine Culture Reflex Order REFLEXED; Urine Mucus 1+ /HPF (NONE SEEN); Urine RBC <5 /HPF (NONE SEEN)
[2019-09-10] MEDS: ACETAMINOPHEN 500 MG TAB PO PRN (20:25)
[2019-09-11] MEDS: METHYLPREDNISOLONE 125 MG INJ IV SCH ×3 (00:59→12:12)
[2019-09-11] MEDS: IPRATROPIUM BROM 0.5MG/2.5ML NEB SCH ×4 (01:37→22:20)
[2019-09-11] MEDS: ALBUTEROL 2.5 MG/3 ML NEB SOL NEB SCH ×4 (01:37→22:20)
[2019-09-11] MEDS: NA CHLORIDE 0.9% 1,000 ML IV SCH ×3 (03:00→23:00)
--- NOTE | 2019-09-11 05:28 | EKG ---
Test Date: 2019-09-10 Test Time: 04:28:57 Electronic Train Control Technician: CRIS MEASUREMENT RESULTS: Intervals: Rate: 77 [place]: QRSD: 148 QT: 432 QTc: 488 [place]: P: IL: QRS: -37 T: 126 INTERPRETIVE STATEMENTS: Atrial fibrillation with premature ventricular or aberrantly conducted complexes Left axis deviation Left bundle branch block Abnormal ECG Compared to ECG 08/30/2019 12:30:00 Left-axis deviation now present Right-axis deviation no longer present Electronically Signed On 09-11-19 05:27:25 [employer] by Josh Sen
[2019-09-11 06:02] LABS: Protime INR 1.1
[2019-09-11 06:05] LABS: Absolute Lymphocytes (CBC) 0.9 K/uL (0.7-4.9); Basophils % 0.1 % (0-1.3); Hematocrit 36.6 % (39.6-49.0); Lymphocytes % 11.5 % (15.3-44.8); MPV 10.5 fL (7.6-11.3); RBC Red Blood Cell Count 3.62 M/uL (4.33-5.43)
[2019-09-11 06:16] LABS: ALT/SGPT 38 U/L (12-78); AST/SGOT 20 U/L (15-37); Albumin 3.2 g/dL (3.4-5.0); Alkaline Phosphatase 71 U/L (45-117); BUN Blood Urea Nitrogen 25 mg/dL (7-18); Bicarbonate 28 mmol/L (21-32); Bilirubin Total 2.6 mg/dL (0.2-1.0); Glucose Level 136 mg/dL (74-106); Magnesium 2.2 mg/dL (1.8-2.4); NT PRO-BNP 2488 pg/mL (<450); Phosphorus 2.7 mg/dL (2.5-4.9); Potassium 4.3 mmol/L (3.5-5.1); Protein, Total 6.1 g/dL (6.4-8.2); Sodium Level 141 mmol/L (136-145)
[2019-09-11 08:29] LABS: Anisocytosis 1+; Blood Morphology Comment NOTED (NOT SEEN); Platelet Estimate DECR; Urine White Blood Cell Casts OK
[2019-09-11] MEDS ORDERED: PANTOPRAZOLE 40MG TABLET PO SCH (09:00)
[2019-09-11] MEDS ORDERED: carvediloL 6.25 MG TAB PO SCH (09:00)
[2019-09-11] MEDS: HOME MED 1 EA UNK (Fluticasone/Salmeterol [Advair 250-50 Diskus] 1 EACH) IH SCH ×2 (09:00→21:00)
[2019-09-11] MEDS: CEFTRIAXONE/SWI 1gm 1 GM/10 ML SYR IV SCH (09:14)
[2019-09-11] MEDS: ENSURE HIGH PROTEIN 237 ML CAN PO SCH ×3 (09:14→22:02)
[2019-09-11] MEDS: JUVEN PACKET PO SCH ×2 (09:14→21:00)
[2019-09-11] MEDS: FOLIC ACID 1 MG TABLET PO SCH ×2 (09:14→21:10)
[2019-09-11] MEDS: ENOXAPARIN 40 MG/0.4 ML SQ SCH (09:15)
[2019-09-11] MEDS: MULTIVITAMIN TAB PO SCH (09:18)
[2019-09-11] MEDS: AZITHROMYCIN IV 500 MG in NA CHLORIDE 0.9% 250 ML IVPB SCH (10:28)
--- NOTE | 2019-09-11 12:59 | P.CNS ---
Date of Consult: 09/11/19 Reason for Consult: Progressive shortness of breath Chief Complaint: Shortness of breath/pulmonary fibrosis History of Present Illness: Patient is 84 years of age admitted with chronic progressive dyspnea altered mental status patient was functioning and has deteriorated significantly he has had progressive deterioration with weight loss chronic shortness of breath become very debilitated history of pulmonary fibrosis Allergies No Known Allergies Allergy (Unverified 08/31/19 14:37) Home Medications: Donepezil HCl 1 tab PO BEDTIME 08/14/19 Omeprazole [Prilosec] 1 cap PO M,W,F 08/14/19 carvediloL [Coreg*] 1 tab PO BID 08/14/19 Multivitamin [Multiple Vitamins] 1 each PO M,W,F 08/30/19 Fluticasone/Salmeterol [Advair 250-50 Diskus] 1 each IH BID #1 blst.w.dev Folic Acid 1 mg PO BID #60 tablet 08/31/19 - Past Medical/Surgical History Diabetic: No -: Hyperlipidemia -: COPD -: Hypertension -: CAD with prior stent -: GERD -: AFib without chronic anti coagulation therapy -: Dementia -: dementia -: Bilateral knee replacement Psychosocial/ Personal History: Currently lives with daughter. - Family History Mother Medical History: Diabetes Father Medical History: Heart disease Brother Medical History: Heart disease Notes: of heart attack - Social History Alcohol use: No CD- Drugs: No Caffeine use: Yes Place of Residence: Home Review of Systems 10-point ROS is otherwise unremarkable Physical Examination Temp Pulse Resp BP Pulse Ox 98.5 F 80 20 129/61 98 09/11/19 12:00 09/11/19 12:00 09/11/19 12:00 09/11/19 12:00 09/11/19 12:00 General: Alert, Cooperative Respiratory: Clear to auscultation bilaterally, Friction rub Cardiovascular: Regular rate/rhythm Gastrointestinal: Normal bowel sounds, Soft and benign Musculoskeletal: No clubbing, No swelling - Problems (1) Shortness of breath Current Visit: Yes Status: Acute Plan: Patient is 84 years of age admitted with progressive shortness of breath history of pulmonary fibrosis also has significant weight loss chemistry show an elevated BNP urinalysis is abnormal normal liver function lost significant amount of weight patient has some interstitial changes probably f pulmonary fibrosis echocardiogram is pending laboratory data including ABGs are unremarkable possible that he has progressive dementia depression is also possibility a trial of anti depressants. A gain and the shortness of breath may be a combination of pulmonary fibrosis and COPD continue with low-dose p.o. steroids and bronchodilators via nebulizer stop dementia medications may cause insomnia. Stops Xanax
--- NOTE | 2019-09-11 13:32 | P.PN ---
Subjective Date of Service: 09/11/19 Chief Complaint: Shortness of breath/pulmonary fibrosis No new complaint. I met the daughter was concerned about patient's multiple hospitalization for his respiratory issues. Daughter also reports poor oral intake and poor appetite along with considerable weight loss. The patient is sitting comfortably in a chair. Not in respiratory distress. He has not required oxygen. Physical Examination - Vital Signs Temperature: 98.5 F Blood Pressure: 129/61 Pulse: 80 Respirations: 20 Pulse Ox (%): 98 - Physical Exam General: Alert, In no apparent distress, Oriented x3 HEENT: Mucous membr. moist/pink, Sclerae nonicteric Neck: JVD not distended Respiratory: Clear to auscultation bilaterally, Normal air movement Cardiovascular: No edema, Regular rate/rhythm, Normal S1 S2 Capillary refill: <2 Seconds Gastrointestinal: Normal bowel sounds, Soft and benign, Non-distended, No tenderness Musculoskeletal: No swelling, No erythema Integumentary: No rashes Neurological: Other (Nonfocal) Assessment And Plan - Current Problems (Diagnosis) (1) Pulmonary fibrosis Current Visit: Yes Status: Acute (2) CAD (coronary artery disease) Current Visit: No Status: Acute (3) COPD exacerbation Current Visit: No Status: Acute (4) HTN (hypertension) Onset Date: 05/07/17 Current Visit: No Status: Acute Qualifiers: Hypertension type: essential hypertension Qualified Code(s): I10 - Essential (primary) hypertension (5) Hyperbilirubinemia Current Visit: No Status: Acute - Plan Pulmonary input appreciated. Continue scheduled bronchodilators. On IV steroid Oral Zithromax and IV Rocephin Echocardiogram requested Continue PT and OT.
[2019-09-11 13:49] LABS: Arterial Blood Carboxyhemoglob 1.1 % (0-1.5); Blood Gas Oxyhemoglobin 93.5 % (94-97)
[2019-09-11] MEDS: METHYLPREDNISOLONE 40 MG INJ IV SCH (16:15)
[2019-09-11] MEDS: ARFORMOTEROL TARTRATE 15 MCG/2 ML VIAL.NEB NEB SCH (20:25)
[2019-09-11] MEDS ORDERED: DONEPEZIL HCL 5 MG TAB PO SCH (21:00)
[2019-09-11] MEDS: ACETAMINOPHEN 500 MG TAB PO PRN (21:09)
[2019-09-12] MEDS: METHYLPREDNISOLONE 40 MG INJ IV SCH ×2 (00:47→08:08)
[2019-09-12] MEDS: IPRATROPIUM BROM 0.5MG/2.5ML NEB SCH ×2 (02:25→07:45)
[2019-09-12] MEDS: ALBUTEROL 2.5 MG/3 ML NEB SOL NEB SCH ×2 (02:25→07:45)
[2019-09-12 05:47] LABS: Absolute Lymphocytes (CBC) 0.7 K/uL (0.7-4.9); Basophils % 0.1 % (0-1.3); Hematocrit 32.9 % (39.6-49.0); Lymphocytes % 6.2 % (15.3-44.8); MPV 10.6 fL (7.6-11.3)
[2019-09-12] MEDS: NA CHLORIDE 0.9% 1,000 ML IV SCH (06:00)
[2019-09-12 07:11] LABS: ALT/SGPT 42 U/L (12-78); AST/SGOT 27 U/L (15-37); Albumin 3.1 g/dL (3.4-5.0); Alkaline Phosphatase 62 U/L (45-117); BUN Blood Urea Nitrogen 33 mg/dL (7-18); Bicarbonate 26 mmol/L (21-32); Bilirubin Total 1.9 mg/dL (0.2-1.0); Glucose Level 132 mg/dL (74-106); Sodium Level 144 mmol/L (136-145)
[2019-09-12] MEDS: CEFTRIAXONE/SWI 1gm 1 GM/10 ML SYR IV SCH (08:08)
[2019-09-12] MEDS: ENSURE HIGH PROTEIN 237 ML CAN PO SCH ×3 (08:08→20:15)
[2019-09-12] MEDS: JUVEN PACKET PO SCH ×2 (08:08→20:15)
[2019-09-12] MEDS: ENOXAPARIN 40 MG/0.4 ML SQ SCH (08:08)
[2019-09-12] MEDS: HOME MED 1 EA UNK (Fluticasone/Salmeterol [Advair 250-50 Diskus] 1 EACH) IH SCH (08:09)
[2019-09-12] MEDS: FOLIC ACID 1 MG TABLET PO SCH ×2 (08:09→20:15)
[2019-09-12] MEDS: ARFORMOTEROL TARTRATE 15 MCG/2 ML VIAL.NEB NEB SCH (08:45)
[2019-09-12] MEDS ORDERED: IPRATROPIUM BROM 0.5MG/2.5ML NEB PRN (08:46)
[2019-09-12] MEDS ORDERED: AZITHROMYCIN 250 MG TAB PO SCH (09:00)
[2019-09-12] MEDS: predniSONE 20 MG TAB PO SCH ×2 (10:56→20:15)
--- NOTE | 2019-09-12 16:34 | PN ---
Date of Progress Note: 09/12/2019 Subjective: Patient seen and examined. Chart reviewed and case discussed with RN and Dr. Arizmendi. The patient's daughter at the bedside. Patient states his breathing is better, however, still has very decreased appetite, still has Carrasquillo catheter in place due to urinary retention. Medications list reviewed. Code status full code. Advance care directives addressed. Physical Examination: Vital Signs: Temperature 97.7, heart rate 77, blood pressure 112/58, respirations 18, O2 92% on room air. General: Awake, alert, oriented x3. Elderly male, frail, appears ill, not in any acute distress. BMI is 22. CV: S1, S2. Irregularly irregular. Peripheral pulses present. Respiratory: Diminished breath sounds. No wheezing or stridor. Some rhonchi heard. Gastrointestinal: Abdomen is soft, nontender, nondistended. Positive bowel sounds. No guarding or rigidity. Extremities: No clubbing, cyanosis, or edema. Neurologic: Cranial nerves 2 through 12 intact grossly. No focal neurological deficit. Speech is normal. Laboratory Data: Sodium 144, potassium 4, chloride 111, CO2 of 26, BUN 33, creatinine 0.81, glucose 132, calcium 8.4, albumin is 3.1. WBC 11, H and H 11.3 and 32.9, platelets 163, neutrophils 90%. Blood cultures, no growth to date. Urine culture, also no growth to date. Assessment And Plan: 84-year-old male with: 1. Acute shortness of breath, improving. 2. Pulmonary fibrosis. We will continue with oral steroids. 3. Acute chronic obstructive pulmonary disease exacerbation. Continue with nebulizer treatments. Brovana has been added, switched over to oral steroids, improving now on 92% on room air. 4. Essential hypertension. We will resume home medications as appropriate. 5. Hyperbilirubinemia, improving, unclear etiology, may be acute phase reactant. 6. Coronary artery disease, [place] artery and [place] heart without angina, stable. 7. Acute cystitis without hematuria. Patient does have enlarged prostate and symptoms of nocturia and urinary retention. Currently has Carrasquillo catheter in place. Patient received 2 days of antibiotics. Cultures are negative to date. Antibiotics have been discontinued. We will monitor. 8. Failure to thrive. Patient has had 50-pound weight loss in the past month. Patient has not kept up with his cancer screening including colonoscopy , prostate amongst other screenings. He will need to follow up with his PCP and continue with cancer screenings. 9. Urinary retention. We will have bladder trial, give Flomax. 10. Dementia, Alzheimer's type without any behavioral disturbances. Disposition: patient is referred to nursing facility, discharge him once accepted. /IMELDA Voice ID: [id number] Report ID: [id number]
[2019-09-12] MEDS ORDERED: TAMSULOSIN 0.4 MG SR CAP PO SCH (21:00)
[2019-09-13] MEDS: ARFORMOTEROL TARTRATE 15 MCG/2 ML VIAL.NEB NEB SCH (07:40)
[2019-09-13] MEDS: MULTIVITAMIN TAB PO SCH (08:18)
[2019-09-13] MEDS: ENOXAPARIN 40 MG/0.4 ML SQ SCH (08:19)
[2019-09-13] MEDS: FOLIC ACID 1 MG TABLET PO SCH (08:19)
[2019-09-13] MEDS: predniSONE 20 MG TAB PO SCH (08:19)
[2019-09-13] MEDS: ENSURE HIGH PROTEIN 237 ML CAN PO SCH (08:20)
[2019-09-13] MEDS: JUVEN PACKET PO SCH (08:20)
[2019-09-13 08:31] VITALS: BP 112/60; TEMP 97.9
[2019-09-13 09:39] VITALS: O2SAT 96
--- NOTE | 2019-09-14 02:53 | DS ---
Date of Discharge: 09/13/2019 Consultants: Dr. Arizmendi with Pulmonology. Admitting Diagnoses: 1.Acute chronic obstructive pulmonary disease exacerbation. 2.Pulmonary fibrosis. 3.Coronary artery disease [place] artery and [place] heart without angina. 4.Essential hypertension. 5.Mixed hyperlipidemia. Discharge Diagnoses: 1.Acute shortness of breath, improving. 2.Acute chronic obstructive pulmonary disease exacerbation, improving with steroids and nebulizers. 3.Pulmonary fibrosis. 4.Essential hypertension, stable. 5.Hyperbilirubinemia, improved. 6.Coronary artery disease [place] artery and [place] heart without angina. 7.Acute cystitis without hematuria. Urine cultures negative. 8.Failure to thrive. 9.Urinary retention, started on Flomax. 10.Dementia Alzheimer's type without behavioral disturbance. Hospital Course: Patient is an 84-year-old male with past medical history of dementia, COPD, pulmona ry fibrosis, comes in with shortness of breath. Patient was started on nebulizer treatments, steroid s, and prophylactic antibiotics. Patient was also seen by Dr. Arizmendi with Pulmonology. His condit ion improved. He was doing well on room air, did not have any hypoxia. Patient overall did well. H e did have abnormal UA, however, his urine culture did not show any growth. His blood cultures were also negative. The patient's chest x-ray shows pulmonary fibrosis and medial left lung base intersti tial opacification, which was stable from comparison. Antibiotics were discontinued as there was no elevated white count, no clinical signs of pneumonia. Patient responded well to steroids and nebuliz ers. Patient was doing well. He did have some urinary retention requiring [place] catheter placement. He was started on Flomax and voiding trial was done with [place] catheter being clamped to see if he is able to void and a [place] catheter can be discontinued without further urinary retention. Patient will need to follow up with Urology in 1-2 weeks. Patient had generalized weakness. He was referred to longterm facility at [facility] and was accepted. Patient will be discharged on [place] nebulizers, steroid taper, and Flomax will be added. He will need to follow up with his primary care physician in 2-3 days, follow up with mild disabilities teacher, Dr. Arizmendi in 2 weeks. Return to ER for wors ening condition. Diet: Heart healthy. Activity: As tolerated, fall precautions. Ambulate with assist. Patient also needs to have his cancer screenings initiated. He has not had a repeat colonoscopy in o otto a decade. He has lost 50 pounds over the last month, which may be related to failure to thrive f rom COPD cachexia versus possible occult malignancy including but not limited to colon, prostate. Physical Examination: General: Awake, alert, no acute distress, elderly male. CV: S1, S2. Respiratory: Moving air well bilaterally, no significant wheezing. Gastrointestinal: Abdomen is soft, nontender, nondistended. Positive bowel sounds. Extremities: No clubbing, cyanosis, or edema. Neurologic: Nonfocal. Total time spent discharging patient was 41 minutes. /IMELDA Voice ID: [id number] Report ID: [id number]
== END 2019-09-13 12:37 | DRG 191 ==
LOC: ER 04:16 → ERHOLD 06:08 → 2ND 06:23
PROVIDERS: ADMIT Hospitalist; ATTEND Hospitalist
DX: J44.1 Chronic obstructive pulmonary disease with (acute) exacerbation (principal); N30.00 Acute cystitis without hematuria; J84.10 Pulmonary fibrosis, unspecified; I10 Essential (primary) hypertension; E80.6 Other disorders of bilirubin metabolism; R62.7 Adult failure to thrive; Z68.22 Body mass index [BMI] 22.0-22.9, adult; R33.9 Retention of urine, unspecified; G30.9 Alzheimer's disease, unspecified; F02.80 Dementia in other diseases classified elsewhere, unspecified severity, without behavioral disturbance, psychotic disturbance, mood disturbance, and anxiety; I25.10 Atherosclerotic heart disease of native coronary artery without angina pectoris; Z95.5 Presence of coronary angioplasty implant and graft; Z96.653 Presence of artificial knee joint, bilateral
CPT/HCPCS: 36415; 71045; 80048; 80053; 80076; 81003; 81015; 82550; 82553; 82805; 83690; 83735; 83880; 84100; 84484; 85025; 85610; 85730; 87040; 87086; 87088; 93005; 94640; 97116; 97161; 97530; 99285; J0456; J0696; J1650; J2920; J2930; J7030; J7512; J7605